=== PATIENT | female | born 1935 | race Caucasian/White ===

== ENCOUNTER → 2017-11-09 08:18 | Outpatient (CLI) | payer MEDICARE, SELFPAY ==
[2017-11-09 10:22] LABS: AST(SGOT) 17 U/L (15-37); Alanine Aminotransfer ALT/SGPT 21 U/L (13-56); Albumin, Serum 3.6 g/dL (3.2-5.0); Alkaline Phosphatase 63 U/L (45-117); Bilirubin, Direct 0.16 mg/dL (0.00-0.30); Cholesterol 188 mg/dL (200); Globulin 3.9 g/dL (2.2-4.2); High Density Lipoprotein 103 mg/dL; Protein, Total 7.5 g/dL (6.4-8.2); Triglycerides 75 mg/dL; Very Low Density Lipoprotein 15 mg/dL (5-40)
== END ==
PROVIDERS: Family Provider Family Medicine; PCP Family Medicine; Visit Provider Internal Medicine Cardiovascular Disease
DX: I25.119 Atherosclerotic heart disease of native coronary artery with unspecified angina pectoris (principal); E78.5 Hyperlipidemia, unspecified
CPT/HCPCS: 36415; 80061; 80076

== ENCOUNTER → 2017-11-22 14:01 | Outpatient (CLI) | payer MEDICARE, SELFPAY ==
[2017-11-22 16:20] LABS: Anion Gap 4 (5-15); BUN 26 mg/dL (7-18); BUN/Creat Ratio 30.4 RATIO (10-20); Calcium,Total 8.5 mg/dL (8.5-10.1); Chloride 104 mmol/L (98-107); Creatinine, Serum 0.85 mg/dL (0.55-1.02); EST Glomerular Filtration Rate 68 mL/min (>60); Est Glom Filt Rate - Afr Amer 82 mL/min (>60); Glucose 157 mg/dL (74-106); Potassium 3.7 mmol/L (3.5-5.1); Sodium Level 139 mmol/L (136-145)
== END ==
PROVIDERS: Family Provider Family Medicine; PCP Family Medicine; Visit Provider Family Medicine
DX: E11.9 Type 2 diabetes mellitus without complications (principal)
CPT/HCPCS: 36415; 80048

== ENCOUNTER → 2017-11-23 12:03 | Outpatient (CLI) | payer MEDICARE, SELFPAY ==
--- NOTE | 2017-11-23 12:04 | STE_ITS ---
Reason For Study: Chest pain Stress Results Protocol: Dobutamine Stress Maximum Predicted HR: 139 bpm Target HR: 118 bpm% Maximu m Predicted HR: 86 % DurationHeart Rate Stage (mm:ss) (bpm) BPDos e Comment BASELINE 70 165/81 STAGE 1 3:25 59 175/8210.00 STAGE 2 3:00 11 0 224/8620.00 STAGE 3 2:38 12 0 220/7330.00BILAT JAW PAIN RECOVERY 82 195/80 Chest Pain resolved Stress Duration: 9:03 mm:ss Maximum Stress HR: 120 bpm Baseline Echocardiogram Findings The estimated ejection fraction is 65 %. Stress Echo Wall motion Data Resting WMIntermediate WMStress WM Resting Wall Motion Wall Motion Stress No regional wall motion No regional wall motion abnormalities noted. abnormalities noted. EKG Data Normal intervals are noted. The patient was titrated from 10 mcg to a maximun of 30 mcg of dobutamine during the stress. The maximum heart rate attained was 121 beats per minute. This was 87% of maximum predicted heart rate. During dobutamine infusion, there were no ST or T wave changes noted to suggest ischemia. No clinical angina was noted. Interpretation Summary The estimated ejection fraction is 65 %. The patient was titrated from 10 mcg to a maximun of 30 mcg of dobutamine during the stress. Normal, adequate, dobutamine echocardiogram. Negative for ischemia by EKG and echocardiographic criteria. No anginal symptoms noted however the patient did develop jaw pain at peak infusion. Hypertensive blood pressure response to dobutamine with a peak blood pressure of 224/86. Test terminated due to the attainment of target heart rate. No associated wall motion and normalities despite her jaw pain. Rare PVCs and PACs during infusion. Final LVEF is 75%. Ordering Physician: Anup Garcia Referring Physician: Anup Garcia Performed By: Mine Ferguson, DENNISCS, RVT
== END ==
PROVIDERS: Family Provider Family Medicine; PCP Family Medicine; Visit Provider Internal Medicine Cardiovascular Disease
DX: I25.119 Atherosclerotic heart disease of native coronary artery with unspecified angina pectoris (principal); R07.9 Chest pain, unspecified; Z95.1 Presence of aortocoronary bypass graft
CPT/HCPCS: 93017; 93350; Q9957; A4216

== ENCOUNTER → 2018-12-12 13:01 | Outpatient (CLI) | payer MEDICARE, SELFPAY ==
[2018-11-26 08:29] VITALS: BMI 31.9
--- NOTE | 2018-12-12 13:04 | STEWCON_ITS ---
Reason For Study: CHEST PAIN Stress Results Protocol: Dobutamine Stress Echocardiogram Maximum Predicted HR: 138 bpm Target HR: 117 bpm % Maximum Predicted HR: 92 % DurationHeart Rate Stage (mm:ss) (bpm) BP Dose Comment BASELINE 60 169/79 DILUTED DEFINITY 8 CC USED DSE- 10 MCG 3:37 69 163/7710.00 DSE- 20 MCG 3:11 96 204/8320.00NO SX DSE- 30 MCG 4:11 127 200/7230.00JAW PAIN 2-3/10 RECOVERY 78 170/84 JAW PAIN SUBSIDED Stress Duration: 10:59 mm:ss Maximum Stress HR: 127 bpm Baseline Echocardiogram Findings The estimated ejection fraction is 65 %. Stress Echo Wall motion Data Resting WM Intermediate WM Stress WM Resting Wall Motion Wall Motion Stress No regional wall motion Posterior-Basal: Mildly abnormalities noted. hypokinetic. Infero-Basal: Mildly hypokinetic. EKG Data The baseline ECG displays normal sinus rhythm. The patient was titrated from 10 mcg to a maximun of 30 mcg of dobutamine during the stress. The maximum heart rate attained was 127 beats per minute. This was 92% of maximum predicted heart rate. At peak infusion, upsloping ST changes only were noted, which did not meet the criteria for ischemia. No clinical angina was noted. Interpretation Summary The estimated ejection fraction is 65 %. Posterior-Basal: Mildly hypokinetic Infero-Basal: Mildly hypokinetic Abnormal, adequate, dobutamine echocardiogram. Positive for ischemia by EKG and echocardiographic criteria. Patient appeared to develop mild inferior and posterior hypokinesis at peak infusion. Hypertensive blood pressure response to infusion. Dobutamine. Patient also developed jaw pain at peak infusion which subsided by 6 minutes into recovery. Patient also had PVCs and rare ventricular couplets during dobutamine. Poor echo windows requiring Definity agent may affect the outcome of interpretation. Test terminated due to attainment of target heart rate. No complications. The study was technically difficult. Contrast injection was performed. Ordering Physician: Barry Rose/Anup Garcia Referring Physician: Barry Rose Performed By: Mine Ferguson, LUISITO, RVT
== END ==
PROVIDERS: Family Provider Family Medicine; PCP Family Medicine; Referring Provider Nurse Practitioner Family; Visit Provider Nurse Practitioner Family
DX: I25.10 Atherosclerotic heart disease of native coronary artery without angina pectoris (principal); Z95.1 Presence of aortocoronary bypass graft; R07.9 Chest pain, unspecified
CPT/HCPCS: 93017; 93350; J7040; Q9957; A4216; C8928

== ENCOUNTER 2018-12-23 07:44 | Day surgery (SDC) | payer MEDICARE, SELFPAY ==
[2018-11-26 08:29] VITALS: BMI 31.9
--- NOTE | 2018-12-18 09:30 | RAD_ITS ---
STUDY: X-RAY CHEST REASON FOR EXAM: Female, 83 years old. Chest pain TECHNIQUE: Frontal and lateral views of the chest COMPARISON: 03/08/2014 FINDINGS: There is stable elevation of the left hemidiaphragm with left basilar atelectasis. The lungs are otherwise clear. There are no pleural effusions. There is no pneumothorax. The heart is normal in size. The visualized osseous structures are within normal limits. RAD/Chest PA and Lateral IMPRESSION: No acute thoracic pathology. Electronically Signed: Roger Delgado, at 17:06 EDT Tel , Service support ,
[2018-12-18 09:55] VITALS: BMI 31.9
[2018-12-18 11:42] LABS: Hematocrit 35.8 % (37-47); Hemoglobin 12.3 g/dL (12.0-15.0); Mean Corp Hgb Conc 34.4 g/dL (32-36); Mean Corpuscular Hgb 31.6 pg (27.0-32.0); Mean Platelet Vol. 10.2 fl (6.2-12.0); Platelet Count 229 K/mm3 (150-450); RBC Distribution Width CV 12.4 % (11.6-14.6); RBC Distribution Width SD 41.3 fl (35.1-43.9); Red Blood Count 3.89 M/mm3 (4.2-5.4); White Blood Count 4.6 K/mm3 (4.4-11.0)
[2018-12-18 12:05] LABS: International Normalized Ratio 1.1; Prothrombin Time (Protime)PT. 13.6 SECONDS (11.7-14.9)
[2018-12-18 12:06] LABS: Partial Thromboplast Time 38.8 Seconds (24.1-36.2)
[2018-12-18 12:07] LABS: Anion Gap 5 (5-15); BUN 23 mg/dL (7-18); BUN/Creat Ratio 27.4 RATIO (10-20); Calcium,Total 8.8 mg/dL (8.5-10.1); Chloride 102 mmol/L (98-107); Creatinine, Serum 0.84 mg/dL (0.55-1.02); EST Glomerular Filtration Rate 69 mL/min (>60); Est Glom Filt Rate - Afr Amer 84 mL/min (>60); Glucose 123 mg/dL (74-106); Potassium 3.3 mmol/L (3.5-5.1); Sodium Level 139 mmol/L (136-145)
[2018-12-23] VITALS (22 sets, daily range): BP systolic 118–182; BP diastolic 42–96; PULSE 64–80; RESP 14–30; TEMP 36.4–36.7; O2SAT 94–97; BMI 32.0; BMI 31.7
--- NOTE | 2018-12-23 11:00 | EKG12_ITS ---
Test Reason : BRADYCARDIA Blood Pressure : / mmHG Vent. Rate : 062 BPM Atrial Rate : 062 BPM P-R Int : 248 ms QRS Dur : 100 ms QT Int : 426 ms P-R-T Axes : 007 052 060 degrees QTc Int : 432 ms Sinus rhythm with 1st degree A-V block Otherwise normal ECG When compared with ECG of 23-DEC-2018 11:06, MANUAL COMPARISON REQUIRED, DATA IS UNCONFIRMED Confirmed by JUDY GARCIA ([id number]), offline editor EULALIA EVANGELISTA ([id number]) on 12/30/2018 2:25:42 PM Referred By: Judy Garcia Confirmed By:JUDY GARCIA
--- NOTE | 2018-12-23 11:02 | CL.I_ITS ---
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 Pt had identical jaw/tooth and chest pain with stetn deployment as she had at home. RECOMMENDATIONS Referred for immediate PCI Medical management of non obstructive LAD and distal SVG to OM lesion unless or until pt has recurren t anginal symptoms. Highly recommend quitting all tobacco products Follow up with primary bullet swaging machine adjuster Risk factor modification ASA Indefinitley Plavix for at least 12 months Routine post interventional care Refer for Outpatient Cardiac Rehab Manual sheath removal per protocol Follow up with Dr. Garcia Successful Mynx Control closure of RFA. DESCRIPTION OF PROCEDURE The patient arrived to the procedure lab. The risks and benefits of the procedure as well as a full d escription of our services here and lack of surgical backup were fully explained to the patient and/o r their significant other prior to the catheterization. The Timeout was completed, verifying the mansoor ect patient and procedure. The patient's procedural site was prepped and draped in the usual fashion. Local anesthetic was given subcutaneously to right groin region with Lidocaine 2%. Using a modified Seldinger technique, arterial access was obtained via the right femoral artery, a 4Fr sheath was inse rted. Left Coronary Artery selective angiography was performed in multiple views using a 4 Fr. JL5 c atheter. Right Coronary Artery selective angiography was then performed in multiple views using a 4 F r. 3DRC catheter. Saphenous Vein graft to the Circumflex selective angiography was performed in multi ple views using a 4 Fr. 3DRC catheter. Left internal mammary artery graft to the LAD selective angiography was performed in multiple views using a 4 Fr. 3DRC catheter. Left Ventriculogra phy was performed in AGUILAR projection using a 4 Fr. Pigtail catheter. LV to AO pullback pressures were then recordedThe images were reviewed and options discussed. A decision was then made to proceed with an Intervention, IVUS or other adjunct procedure. Arterial sheath was exchanged for a 6 Fr Sheath. HS II Guide catheter was inserted and engaged in to the RCA. BMW Guide wire was advanced to the RCA. 2x12 Emerge Balloon catheter was inserted. Balloo n catheter was advanced across lesion in the right coronary, mid. PTCA balloon inflated at 6 atms for 4 secs. PTCA balloon inflated at 6 atms for 12 secs. PTCA balloon inflated at 8 atms for 10 secs. PT CA balloon inflated at 8 atms for 12 secs. Angiogram performed post balloon dilatation. 3.5x32 Synerg y Drug Eluting stent was inserted. Drug Eluting stent was advanced across the lesion in the right cor onary, mid. Angiogram performed post stent deployment. 3.5x12 NC Emerge Balloon catheter was inserted . Balloon catheter was inserted post stent. Contrast was injected through the sheath and the Right Il iac and Femoral artery were assessed for possible closure device. The arterial sheath was pulled and a Mynx closure device was deployed for hemostasis CORONARY ANGIOGRAPHY DOMINANCE: Right Dominant LEFT HEART ASSESSMENT Left Ventricular Ejection Fraction: by LV Gram 75 % Normal Left Ventricular systolic function LVEDP: 16 mmHg Elevated Left Ventricular End Diastolic Pressure Normal LV wall motion LEFT MAIN: 20 % Stenosis LEFT ANTERIOR DESCENDING ARTERY: PROX LAD: Mild calcification, 50 % Stenosis, Moderate luminal irregularities up to 50% CIRCUMFLEX ARTERY: is occluded RIGHT CORONARY ARTERY: MID RCA: 75 % Stenosis GRAFTS: PHILIPPE graft to the LAD is atretic and non functional Saphenous Vein graft to the Mid LAD previously placed stent is patent Radial graft to the 1st Diagonal is totally occluded Saphenous Vein graft to the 1st OM has a distal lesion of 65 % INTERVENTION INFORMATION LESION SITE: RCA (Mid) Lesion Complexity: High/C, lesion at bifurcation: No, thrombus present: No, lesion length: 32 mm, cul prit lesion: Yes Pre Stenosis: 75 % Pre intervention MIN flow: 3 PROCEDURE: Drug Eluting Stent with pre and post dilatation Post Stenosis: 0 % Post intervention MIN flow: 3 Lesion Devices: Orantes .014 BMW [place] Straight 190cm Medtronic 6 Fr HSII 100cm Guide Catheter Lan Sci EMERGE MR 2.00x12 BALLOON Lan Sci Synergy MR TANVI 3.50x32 Lan Sci NC EMERGE MR 3.50x12 BALLOON COMPLICATIONS No Complications PROCEDURE MEDICATIONS Oxygen: 2 L/min via nasal cannula Heparin 6000 unit(s) IV 12/23/2018 10:21:59 Nitro 200 mcg IC 12/23/2018 10:24:04 Nitro 200 mcg IC 12/23/2018 10:24:04 Nitro 200 mcg IC 12/23/2018 10:29:07 SUMMARY OF HEMODYNAMIC DATA Time AIR REST ECG 08:18:36 AO 167/68 (104) SA 10:07:01 LV 153/-15, 15 10:17:32 LV 159/-15, 19 10:17:38 LVp 152/-8, 24 10:17:46 AOp 152/57 (95) 10:17:51 Signed By Anup Garcia MD On 12/23/2018 11:01:31 Anup Garcia MD
[2018-12-23] MEDS: 0.9% Normal Saline 1,000 ML 150 ML IV (11:17)
[2018-12-23 11:50] LABS: ACT Activated Clotting Time 191 sec (74-137)
--- NOTE | 2018-12-23 13:43 | CRPHASE1_ITS ---
Patient Communication PHII Cardiac Rehab Discussed with Patient:: No Guide to Cardiac Rehab Given to Patient:: Yes Cardiac Rehab Facility Choice List Given to Patient:: Yes - chooses [facility] Choice Program [facility] CR PHII:: Communication Given to CR, Refer to [facility] Choice Program Other:: Communication Given to CR, With permission faxed order and referral information Resolute Professional:: Anup Garcia Phase II Cardiac Rehab:: Yes Sessions:: 36 sessions - 3 days/wk, 12 weeks Risk Factors/Lifestyle Hx Hypertension: Yes Hx Dyslipidemia: Yes Hx Obesity: Yes Height: 1.55 m Weight:: 76.204 kg BMI: 31.7 Family History: Family History (Last Reviewed 07/18/18 @ 14:31 by Nilda Montes De Oca) Father CAD (coronary artery disease) Brother CAD (coronary artery disease) Phase I Education Given On:: [place], Nutrition, Antiplatelet medication, CHF, Smoking cessation, Diabetes - Type I, Diabetes - Type II Issues Affecting Care:: None Knowledge of Condition:: Yes Learning Preferences: Verbal, Written, Audio/Visual, Demonstration Medical/Surgical History Hypertension:: Yes Dyslipidemia:: Yes CABG: Yes PTCA:: Yes Discharge/Home/Social Eval Discharge Disposition: Home Cardiac Rehabilitation Info Cardiac Rehabilitation Program Information: Cardiac Rehabilitation is important for patients like you who are recovering from a heart problem. Cardiac rehabilitation programs are recognized as integral to the continued care of the patient with coronary heart disease. The cardiac rehabilitation program is designed to optimize a patient's physical, psychological, and social functioning. Health health care recruiter work in cardiac rehabilitation programs and assist you with getting the treatments you need to get stronger and healthier - like exercise, healthy eating habits, and medications. Cardiac rehabilitation has been show to help people with heart problems live longer and have better life enjoyment than people who do not go to cardiac rehabilitation. Please contact the Cardiac Rehabilitation Program at [facility] at in two weeks if you have not heard from them.
--- NOTE | 2018-12-23 13:46 | CRPH1.INSTRU ---
General Education CAD and cardiac anatomy and function:: Patient communicates acknowledgment Explanation of diagnoses and procedures:: Patient communicates acknowledgment Sign/Symptoms of GA:: Patient communicates acknowledgment Antiplatelet therapy: Patient communicates acknowledgment Proper use of NTG-SL: Not instructed Emergency procedures and activation of EMS: Patient communicates acknowledgment Compliance of all prescribed medications: Patient communicates acknowledgment Smoking Nicotine/Smoking Response Code:: Patient communicates acknowledgment Dyslipidemia Dyslipidemia Response Code:: Patient communicates acknowledgment Overweight/Obesity Patient Overweight/Obesity Risk Factors Are:: Obesity - > or = 30 Recommendations Include:: Weight loss of 5-10%, Reduced calorie diet, Exercise 5-7 times/week Overweight/Obesity:: Patient communicates acknowledgment Hypertension Recommendations Include:: Maintain BP <130/85, BP <130/80 if diabetic, DASH dietary guidelines, Decrease/maintain normal body weight, Moderation of ETOH Hypertension:: Patient communicates acknowledgment Heart Disease Patient Heart Disease Risk Factors Are:: Family history of heart disease < 65 years old Heart Disease Response Code:: Patient communicates acknowledgment Diabetes Diabetes:: Patient communicates acknowledgment Metabolic Syndrome Metabolic Syndrome Response Code:: Patient communicates acknowledgment Sedentary Sedentary Response Code:: Patient communicates acknowledgment Stress Stress Response Code:: Patient communicates acknowledgment
[2018-12-23] MEDS: hydroCHLOROthiazide 12.5mg 12.5 MG PO (15:11)
[2018-12-23] MEDS: Losartan Potassium 50 MG Tablet PO (15:12)
[2018-12-23] MEDS: Atorvastatin Calcium 20 MG Tablet PO (21:04)
[2018-12-23] MEDS: Carvedilol 6.25 MG Tablet PO (21:04)
[2018-12-24] VITALS (10 sets, daily range): BP systolic 136–171; BP diastolic 53–78; PULSE 60–71; RESP 20–27; TEMP 36.7–37.1; O2SAT 95–96
[2018-12-24 04:38] LABS: ALB/GLOB Ratio 0.8 RATIO (0.9-2.4); AST(SGOT) 16 U/L (15-37); Alanine Aminotransfer ALT/SGPT 15 U/L (13-56); Albumin, Serum 3.1 g/dL (3.2-5.0); Alkaline Phosphatase 67 U/L (45-117); Anion Gap 6 (5-15); BUN 14 mg/dL (7-18); BUN/Creat Ratio 19.7 RATIO (10-20); Calcium,Total 8.5 mg/dL (8.5-10.1); Chloride 107 mmol/L (98-107); Creatinine, Serum 0.71 mg/dL (0.55-1.02); EST Glomerular Filtration Rate 84 mL/min (>60); Est Glom Filt Rate - Afr Amer 101 mL/min (>60); Estimated Creatinine Clearance 32.73 ml/min; Globulin 3.7 g/dL (2.2-4.2); Glucose 105 mg/dL (74-106); Potassium 3.6 mmol/L (3.5-5.1); Protein, Total 6.8 g/dL (6.4-8.2); Sodium Level 141 mmol/L (136-145)
[2018-12-24 04:49] LABS: Hematocrit 34.4 % (37-47); Hemoglobin 11.8 g/dL (12.0-15.0); Mean Corp Hgb Conc 34.3 g/dL (32-36); Mean Corpuscular Volume 93.2 fL (81-99); Mean Platelet Vol. 9.7 fl (6.2-12.0); Platelet Count 209 K/mm3 (150-450); RBC Distribution Width CV 12.2 % (11.6-14.6); RBC Distribution Width SD 42.1 fl (35.1-43.9); Red Blood Count 3.69 M/mm3 (4.2-5.4); White Blood Count 4.2 K/mm3 (4.4-11.0)
--- NOTE | 2018-12-24 07:56 | PCM.PN.CARD ---
Subjectve: Patient feels much better this morning. No 24-hour events. Telemetry negative except for PVC. EKG shows normal sinus rhythm, no acute changes. Hemoglobin and creatinine are within nominal limits. Right groin is clean/dry/intact without evidence of thrills, bruits or hematoma. There is very slight tenderness but no evidence of hematoma or bruit. Objective: Vital Signs Temp Pulse Resp BP Pulse Ox 98.7 F 64 20 H 164/71 H 95 12/24/18 03:00 12/24/18 07:28 12/24/18 07:00 12/24/18 07:00 12/24/18 07:00 Oxygen Delivery Method Room Air Weight: 168 lb 6.931 oz Body Mass Index (BMI) 32.0 Intake and Output for Last 24 Hours 12/22/18 12/23/18 12/24/18 23:59 23:59 23:59 Intake Total 1320 / 1560 340 / 340 Output Total 625 / 925 500 / 500 Balance 695 / 635 -160 / -160 General: Awake, Alert, Oriented x 3 HEENT: PERRL, EOMI, Sclera Non Icteric Neck: Supple, Good ROM, No Lymph Node Enlargement Lungs: Clear to auscultation Cardiovascular: Regular Rhythm, Normal S1, Normal S2, No Murmurs, No Rubs, No Gallops Vascular: No Carotid Bruits, Normal Femoral Pulses, Normal Radial Pulses, Normal Dorsalis Pedal Pulse, Normal Posterior Tibial Pulses Abdomen: Bowel Sounds Present, Soft, Non Tender, No HSM, No Organomegaly Extremities: No Cyanosis, No Clubbing, No edema Neurological: No Focal Motor or Sensory Deficit 12/24/18 04:15: WBC 4.2 L, RBC 3.69 L, Hgb 11.8 L, Hct 34.4 L, MCV 93.2, MCH 32.0, MCHC 34.3, Plt Count 209, MPV 9.7 12/24/18 04:15: Sodium 141, Potassium 3.6, Chloride 107, Carbon Dioxide 28.0, Anion Gap 6, BUN 14, Creatinine 0.71, Est GFR (MDRD) Af Amer 101, Est GFR (MDRD) Non-Af 84, BUN/Creatinine Ratio 19.7, Glucose 105, Calcium 8.5, Total Bilirubin 0.40 Rhythm: EKG: ECHO: Stress Test: Cardiac Cath: PCI: CT Surgery: Holter monitor: EPS: PPM: CXR: Chest CT Scan: Assessment/Plan 1. Coronary artery disease: The patient status post bypass surgery with failure of her saphenous vein graft to the diagonal, and atretic PHILIPPE to the LAD which is essentially nonfunctional. Her remaining saphenous vein graft to the obtuse marginal has a distal concentric 65% stenosis before it anastomosis with her obtuse marginal. Patient has a non-bypassed right coronary artery which had a significant mid RCA stenosis. She received a drug-eluting stent with an excellent result, and during the procedure had the same kind of chest pain and jaw pain symptoms she had at home. I recommended the patient continue baby aspirin and Plavix for life. If the patient continues to have exertional anginal symptoms at home we can consider PCI of the vein graft to the left circumflex, and FloWire evaluation of her mid LAD to determine if she requires intervention of those 2 vessels. 2. Hyperlipidemia: Continue statin based medications. Repeat lipid profile after cardiac rehab is completed. 3. Patient may be discharged home. Follow-up with Dr. Garcia. Thank you very much for the opportunity to participate in the cardiac care of your patient. Code Visit Inpatient E&M: 99000 Subs Hosp L2
[2018-12-24] MEDS: Pantoprazole Sodium 20 MG Tablet PO (08:31)
[2018-12-24] MEDS: Aspirin E.C. 81 MG Tablet PO (08:31)
[2018-12-24] MEDS: Losartan Potassium 50 MG Tablet PO (08:32)
[2018-12-24] MEDS: hydroCHLOROthiazide 12.5mg 12.5 MG PO (08:32)
[2018-12-24] MEDS: Carvedilol 6.25 MG Tablet PO (08:32)
[2018-12-24] MEDS: Multivitamin (Healthy Eyes) Capsule 2 CAP PO (08:32)
[2018-12-24] MEDS: Isosorbide Mononitrate 60 MG Tablet PO (08:33)
[2018-12-24] MEDS: Clopidogrel Bisulfate 75 MG Tablet PO (08:33)
[2018-12-24] MEDS: Calcium Carb/Vitamin D 1 TABLET Tablet PO (08:33)
--- NOTE | 2018-12-24 08:43 | PCM.DC.CCA ---
Discharge Diet: Low fat/ Low Cholesterol Discharge Activity: Return to Normal Activity Lifting Restrictions: 10 pounds and also avoid any pushing or pulling for 3 days after your test. Call your doctor if your incision/area has: Continuous Slow Oozing, Sudden Increased Bleeding, Increased Pain/ Swelling, Foul Smelling Discharge, Swelling at the incision site Call your doctor if you observe: Fever of 101 or Higher, Shortness of breath, Chest pain Cleanse incision/area with: Soap & Water Additional Dressing/Incision Instructions:: Keep the dressing (bandage) on until the next morning. You may then shower, but do not take a tub bath for 5 days after your test. It is normal to have some tenderness and discomfort at the puncture site. Sometimes bruising also occurs. However, if pain, numbness, or coldness occurs below the puncture site (in your leg, toes, arms or fingers) call your doctor at once. You may have a small, marble sized knot at the puncture site. This is normal. Do not rub it. It will go away in 4-6 weeks. Bleeding can occur from the area where the puncture was done. Blood may spurt or drip from the site. If blood spurts, apply pressure right away to stop bleeding and call 911. Although rare, bleeding into the tissue (hematoma) can also occur. If this happens, a large, firm area goose egg under the skin will appear. If any of these occur, lie down as flat as you can and have someone apply firm pressure to the cath site with a gauze pad or a clean washcloth for 10-15 minutes. Call 911 or go to the Emergency Department. Additional Instructions: Narayan need to stay on your plavix for at least one year before it can be stopped At your next OV we will discuss cardiac rehab Allergies/Adverse Reactions: Allergies lisinopril Adverse Reaction (Verified 11/26/18 13:34) cough Medications to take at Discharge Aspirin E.C. [Ecotrin] 81 mg PO DAILY@0800 03/08/14 Omeprazole [Prilosec] 20 mg PO DAILY 03/08/14 Knee High Compression Stockings #2 ea 03/20/18 carvedilol 6.25 mg tablet 6.25 mg PO BID #180 tab 07/19/18 isosorbide mononitrate ER 60 mg tablet,extended release 24 hr 60 mg PO DAILY #90 tab 07/19/18 losartan 50 mg-hydrochlorothiazide 12.5 mg tablet 1 tab PO QDAY #90 tab 07/19/18 simvastatin 40 mg tablet 40 mg PO QPM #90 tab 07/19/18 furosemide 20 mg tablet 20 mg PO .COMPLEX #60 tab 11/26/18 nitroglycerin 0.4 mg sublingual tablet 0.4 mg SUBLINGUAL Q5-15M PRN #25 tab 11/26/18 clopidogrel 75 mg tablet 75 mg PO .COMPLEX #30 tab 12/18/18 potassium chloride ER 20 mEq tablet,extended release 20 meq PO DAILY #90 tab 12/18/18 Orders to be completed after discharge: Phase II, Outpatient Cardiac Rehab Location: None Selected Primary Care Physician: Sam Rojas MD [Primary Care Provider] - Test Results: Test results from this visit will be discussed in further detail at your follow-up appointment, if applicable. Please Follow Up With: Harika Laguna PA When: 01/09 at 3:30 pm Cardiac Rehabilitation Info Cardiac Rehabilitation Program Information: Cardiac Rehabilitation is important for patients like you who are recovering from a heart problem. Cardiac rehabilitation programs are recognized as integral to the continued care of the patient with coronary heart disease. The cardiac rehabilitation program is designed to optimize a patient's physical, psychological, and social functioning. Health hospice spiritual care coordinator work in cardiac rehabilitation programs and assist you with getting the treatments you need to get stronger and healthier - like exercise, healthy eating habits, and medications. Cardiac rehabilitation has been show to help people with heart problems live longer and have better life enjoyment than people who do not go to cardiac rehabilitation. Please contact the Cardiac Rehabilitation Program at [facility] at in two weeks if you have not heard from them.
--- NOTE | 2018-12-24 09:07 | HP.PCM_ITS ---
Problem List (1) Stented coronary artery Status: Chronic Comment: Successful PTCA/TANVI mid RCA with a 3.5 x 32 Promus Synergy per DJN @ [facility] 12/23/2018 (2) Abnormal stress echo Status: Acute (3) Hyperlipidemia, unspecified Status: Chronic Qualifiers: (4) Essential (primary) hypertension Status: Chronic (5) Atherosclerosis of [place] coronary artery of [place] heart without angina pectoris Status: Chronic Comment: CABG PHILIPPE-LAD, SVG-RAMUS and CX. SVG- RAMUS Occluded per cath 2005 (6) Chest pain Status: Acute (7) Fatigue Status: Acute (8) Dyspnea Status: Acute (9) H/O coronary artery bypass surgery Status: Chronic Comment: CABG PHILIPPE-LAD, SVG-RAMUS and CX. SVG- RAMUS Occluded per cath 2005 History and Physical Date of Admission: 12/23/18 [facility] [place] [id number] [facility] [place] [address] OFFICE VISIT Date of Service: 11/26/18 MR#: [id number] Acct: [id number] Name: JEANETTE CORRIGAN Rep #: [id number] : 1935 Provider: EROS Rose Age/Sex: 83/F Location: [facility] Status: Signed [facility] History of Present Illness Details: Mrs. Corrigan is a very pleasant 83-year-old female with a history of hypertension, hypercholesterolemia, borderline diabetes, coronary artery disease status post 3 vessel bypass surgery on 12/08/94. At that time she received a PHILIPPE to the LAD, an SVG to the ramus/diagonal, and an SVG to the lateral circumflex. Her anginal symptoms prior to her bypass were crushing substernal chest pressure radiating to her arm and jaw. A repeat catheterization in 2005 reportedly showed graft occlusion of the SVG to the diagonal, and compromise of the SVG to the lateral circumflex. According to the patient, no angioplasty was performed as apparently her discouraged her from having it done due to concerns of sudden . She denies arm, jaw, or neck discomfort. She states varying chest and arm pain at rest. This can occur with activity too. This resolves with NTG and laying down. This has not happened for several days. Her exercise tolerance is stable. She denies symptoms of CHF, lightheadedness, dizziness, near syncope, or syncopal episodes. She states palpitations several weeks ago that felt funny. This was short lasting and resolved on its own. She denies new or worsening edema or claudication issues. She denies PND, blood in urine, blood in stool, or myalgia. She states feeling tired all the time. She states she does not feel rested after sleeping. She states feeling up often. She states snoring and waking with a dry mouth. She denies witness apnea. She denies headaches. She states feeling difficult staying asleep. She denies difficulty falling asleep. She states sleeping in a chair and with a wedge. Intake Vital Signs 11/26/18 Height 5 ft 1 in 11/26/18 Weight: 169 lb 11/26/18 Body Mass Index (BMI) 31.9 11/26/18 Blood Pressure 111/62 11/26/18 Blood Pressure Location Lt brachial 11/26/18 Blood Pressure Position Sitting 11/26/18 Respiratory Rate 18 11/26/18 Pulse Rate 73 11/26/18 Pulse Source Monitor 11/26/18 Pulse Ox 95 Intake Visit Reasons: 4 M FU Kitchen Food Server Required: No Accompanied by: none Is patient in pain?: No Allergies lisinopril Adverse Reaction (Verified 11/26/18 13:34) cough Medications Aspirin E.C. [Ecotrin] 81 mg PO DAILY@0800 03/08/14 [History Confirmed 07/18/18] Omeprazole [Prilosec] 20 mg PO DAILY 03/08/14 [History Confirmed 07/18/18] Senior Eye Vision 2 tab PO DAILY 03/08/14 [History Confirmed 07/18/18] calcium-vitamin C-vit D2-min tablet tab PO 11/06/17 [History Confirmed 07/18/18] docosahexanoic acid 200 mg capsule mg PO 11/06/17 [History Confirmed 07/18/18] Knee High Compression Stockings #2 ea 03/20/18 [Rx Confirmed 07/18/18] carvedilol 6.25 mg tablet 6.25 mg PO BID #180 tab 07/19/18 [Rx] isosorbide mononitrate ER 60 mg tablet,extended release 24 hr 60 mg PO DAILY #90 tab 07/19/18 [Rx] losartan 50 mg-hydrochlorothiazide 12.5 mg tablet 1 tab PO QDAY #90 tab 07/19/18 [Rx] simvastatin 40 mg tablet 40 mg PO QPM #90 tab 07/19/18 [Rx] furosemide 20 mg tablet 20 mg PO .COMPLEX #60 tab 11/26/18 [Rx Confirmed 11/26/18] nitroglycerin 0.4 mg sublingual tablet 0.4 mg SUBLINGUAL Q5-15M PRN #25 tab 11/26/18 [Rx Confirmed 11/26/18] [facility] History (Updated 11/26/18 @ 08:24 by JESS OviedoC) Hyperlipidemia, unspecified (Chronic) Essential (primary) hypertension (Chronic) Atherosclerosis of [place] coronary artery of [place] heart without angina pectoris (Chronic) Bilateral lower extremity edema (Acute) GERD (gastroesophageal reflux disease) (Chronic) PVD (peripheral vascular disease) (Chronic) Surgical History (Updated 10/28/17 @ 19:29 by Kay Romero) H/O coronary artery bypass surgery (Chronic 12/08/94) Family History (Updated 04/12/17 @ 14:02 by Kay Romero) Father CAD (coronary artery disease) Brother CAD (coronary artery disease) Social History (Updated 11/26/18 @ 16:02 by JEAN-PAUL Oviedo) Smoking Status: Never smoker ROS Const Const: Positive for fatigue; negative for weakness, body ache, fever(s) or chills ENT ENT: Negative for dizziness Cardio Chest Pain: Yes Palpitations: Yes Edema: None Muscle aches with walking: None Resp Respiratory: Negative for SOB with activity, SOB at rest, SOB orthopnea\SOB lying down or paroxysmal nocturnal dyspnea GI GI: Negative nausea, vomiting blood/hematemesis, bright, red blood in stools or black,tarry stools : Negative for hematuria or frequent nighttime urination/ nocturia Musc Musc: Negative for muscle aches/ myalgia Skin Skin: Negative non-healing lesions or rash Neuro Neuro: Negative for dizziness, lightheadedness, near syncope, syncope, orthostatic symptoms or weakness Endo Endo: Positive for fatigue Allergy Allergy/Immunology: Negative for rash Cardiology Exam Const Appearance: cooperative, healthy appearing, comfortable and no acute distress Nutritional Appearance: well nourished and obese Orientation: alert, awake and oriented x3 Head Head: normal to inspection Ears: hearing grossly normal bilaterally Nose: external nose normal Face and Sinus: face symmetric Mouth: oral mucosae normal Eyes General: appearance normal, both eyes and all related structures Eyelids: eyelids normal EOM: EOM intact bilaterally Neck Neck: normal visual inspection and no JVD Carotids: normal carotid upstroke Chest Chest inspection: normal inspection of the chest, symmetric chest movement and normal respiratory effort; negative cough Auscultation: Bilateral: Clear to Auscultation Cardio Rate: regular rate Rhythm: regular rhythm Heart sounds: S1 normal and S2 normal; negative rub, gallop or murmur GI GI: normal to inspection and obese Neuro General: alert, awake, oriented x3 and CN's II-XI intact bilaterally Skin Skin: no rashes or lesions noted Extremities Pulses: Normal: Right Posterior Tibial Pulse, Left Posterior Tibial Pulse, Right Radial Pulse, Left Radial Pulse Lower Extremity Edema: None: Bilateral Psych Psychological: normal affect Assessment & Plan 1. Atherosclerosis of [place] coronary artery of [place] heart without angina pectoris I25.10 CABG PHILIPPE-LAD, SVG-RAMUS and CX. SVG- RAMUS Occluded per cath 2006 Plan Her most recent stress echocardiogram from November 2017 was considered to be normal, adequate, dobutamine echocardiogram that was negative for ischemia by ECG and echocardiographic criteria. Her ejection fraction was noted to be 65%. Patient has had been having more episodes of chest pain. She has taken nitroglycerin on a routine basis to help with such chest pains. Due to her previous history of cardiac disease and now a new recurrent chest pain along with fatigue, she will undergo a repeat stress echocardiogram to evaluate for changes. Based on results further recommendation will be made. Orders Orders: Stress Test Echo w/o Contrast Today 2. H/O coronary artery bypass surgery Z95.1 CABG PHILIPPE-LAD, SVG-RAMUS and CX. SVG- RAMUS Occluded per cath 2006 Plan She will continue with current treatment plan as outlined above. Orders Orders: Stress Test Echo w/o Contrast Today 3. Essential (primary) hypertension I10 Plan Patient's blood pressure is well-controlled. We will continue to monitor. We will not make any medication regimen changes. It was thoroughly discussed at last office appointment on 07/18/2018 in regards to medication adjustment due to concerns of lightheadedness and dizziness with position changes. Per discussion no medication changes were made. Patient states her positional lightheaded dizziness is manageable she does not wish to adjust medications. 4. Hyperlipidemia, unspecified hyperlipidemia type E78.5 Plan Lipid panel from November 2017 showed cholesterol: 188, HDL: 103, LDL: 70, and triglycerides: 75. She will continue with current statin medication. We will continue to monitor. Her ideal LDL level is 70 or below. Plan Detail Other Orders Orders: Stress Test Echo w/o Contrast Today R07.9 Other Medications New: nitroglycerin 0.4 mg sublingual Q5-15M PRN 25 tabs 3RF Refilled: furosemide 20 mg PO daily, may take 1 extra tablet to = 40 mg daily as needed for swelling/weight gain/shortness of breath; 60 tabs 11RF Additional Comments Thank you for allowing us to participate in the patients plan of care, if you have any questions please do not hesitate to call. This note was generated using a voice recognition system and there may be incorrect words, spelling or punctuation that were not noted when reviewing the office note prior to saving. Follow Up 6 Months (DJN) Coding Level of Care Code Off vis,est,level 4 Diagnoses Atherosclerosis of [place] coronary artery of [place] heart without angina pectoris I25.10 H/O coronary artery bypass surgery Z95.1 Essential (primary) hypertension I10 Hyperlipidemia, unspecified hyperlipidemia type E78.5 ??Hyperlipidemia type: unspecified Coding Level of Care Code Off vis,est,level 4 Diagnoses Atherosclerosis of [place] coronary artery of [place] heart without angina pectoris I25.10 H/O coronary artery bypass surgery Z95.1 Essential (primary) hypertension I10 Hyperlipidemia, unspecified hyperlipidemia type E78.5 ??Hyperlipidemia type: unspecified Supplemental Info Supplemental Information Stress echocardiogram from 11/23/2017: Interpretation Summary The estimated ejection fraction is 65 %. The patient was titrated from 10 mcg to a maximun of 30 mcg of dobutamine during the stress. Normal, adequate, dobutamine echocardiogram. Negative for ischemia by EKG and echocardiographic criteria. No anginal symptoms noted however the patient did develop jaw pain at peak infusion. Hypertensive blood pressure response to dobutamine with a peak blood pressure of 224/86. Test terminated due to the attainment of target heart rate. No associated wall motion and normalities despite her jaw pain. Rare PVCs and PACs during infusion. Final LVEF is 75%. Echocardiogram from 09/22/2015: Interpretation summary Technically difficult. No parasternal window. The estimate ejection fraction of 65%. Stage I diastolic dysfunction. Unable to estimate RV systolic pressure. There is no comparison study available. Labs LDL Cholesterol 70 mg/dL (0-130) 11/09/17 HDL Cholesterol 103 mg/dL (40-) 11/09/17 Triglycerides 75 mg/dL (-199) 11/09/17 VLDL Cholesterol 15 mg/dL (5-40) 11/09/17 Diagnostics Stress Echocardiogram 11/23/17 11/26/18 1602 <Electronically signed by Barry Payne> Date _ Barry JEONG Cosigner Signature: Date (if applicable) CC: Sam Rojas MD ~ Patient seen and examined on the day of procedure, no interim change noted from her history and physical as stated above. Agree with above history and physical. Patient may proceed with left heart catheterization plus/minus intervention.
--- NOTE | 2018-12-24 10:00 | EKG12_ITS ---
Test Reason : POST PCI Blood Pressure : / mmHG Vent. Rate : 066 BPM Atrial Rate : 066 BPM P-R Int : 246 ms QRS Dur : 092 ms QT Int : 368 ms P-R-T Axes : 113 048 048 degrees QTc Int : 385 ms Sinus rhythm with 1st degree A-V block Nonspecific T wave abnormality Abnormal ECG Confirmed by MAGUI REEDER, TJ ([id number]), research editor FANNY MARADIAGA ([id number]) on 01/01/2019 1:00:42 PM Referred By: Anup Garcia Confirmed By:TJ KILGORE MD
== END 2018-12-24 07:58 | disposition home or self-care (01) ==
LOC: CLSP 07:53 → ICU 10:41
PROVIDERS: Family Provider Family Medicine; PCP Family Medicine; Referring Provider Internal Medicine Cardiovascular Disease; Visit Provider Internal Medicine Cardiovascular Disease
DX: I25.10 Atherosclerotic heart disease of native coronary artery without angina pectoris (principal); I11.0 Hypertensive heart disease with heart failure; I50.1 Left ventricular failure, unspecified; I49.3 Ventricular premature depolarization; I73.9 Peripheral vascular disease, unspecified; E78.5 Hyperlipidemia, unspecified; R94.39 Abnormal result of other cardiovascular function study; R07.89 Other chest pain; R53.83 Other fatigue; R06.00 Dyspnea, unspecified; R73.03 Prediabetes; K21.9 Gastro-esophageal reflux disease without esophagitis; E66.9 Obesity, unspecified; Z68.31 Body mass index [BMI] 31.0-31.9, adult; Z95.1 Presence of aortocoronary bypass graft; Z95.5 Presence of coronary angioplasty implant and graft; Z79.82 Long term (current) use of aspirin; Z79.899 Other long term (current) drug therapy
CPT/HCPCS: 36415; 71046; 80048; 80053; 85027; 85347; 85610; 85730; 92928; 93005; 93459; C1760; J7030; J7040; Q9967; C1725; C1769; C1874; C1887; C1894; C9600

== ENCOUNTER → 2020-01-29 14:05 | Outpatient (CLI) | payer MEDICARE, SELFPAY ==
[2018-12-23 13:46] VITALS: BMI 31.7
[2020-01-29 13:25] VITALS: BMI 30.9
[2020-01-29 15:34] LABS: AST(SGOT) 18 U/L (15-37); Alanine Aminotransfer ALT/SGPT 19 U/L (13-56); Albumin, Serum 3.5 g/dL (3.2-5.0); Alkaline Phosphatase 75 U/L (45-117); Bilirubin, Direct 0.12 mg/dL (0.00-0.30); Cholesterol 214 mg/dL (200); Globulin 3.9 g/dL (2.2-4.2); High Density Lipoprotein 87 mg/dL; Protein, Total 7.4 g/dL (6.4-8.2); Triglycerides 173 mg/dL; Very Low Density Lipoprotein 35 mg/dL (5-40)
== END ==
PROVIDERS: PCP Family Medicine; Referring Provider Physician Assistant Medical; Visit Provider Physician Assistant Medical
DX: E78.5 Hyperlipidemia, unspecified (principal); I25.10 Atherosclerotic heart disease of native coronary artery without angina pectoris
CPT/HCPCS: 36415; 80061; 80076

== ENCOUNTER → 2020-08-06 12:21 | Outpatient (CLI) | payer MEDICARE, SELFPAY ==
[2018-12-23 13:46] VITALS: BMI 31.7
[2020-08-06 11:16] VITALS: BMI 30.6
[2020-08-06 12:56] LABS: AST(SGOT) 15 U/L (15-37); Alanine Aminotransfer ALT/SGPT 16 U/L (13-56); Albumin, Serum 3.5 g/dL (3.2-5.0); Alkaline Phosphatase 81 U/L (45-117); Bilirubin, Direct 0.13 mg/dL (0.00-0.30); Cholesterol 207 mg/dL (200); High Density Lipoprotein 92 mg/dL; Protein, Total 7.5 g/dL (6.4-8.2); Triglycerides 89 mg/dL; Very Low Density Lipoprotein 18 mg/dL (5-40)
== END ==
PROVIDERS: PCP Family Medicine; Referring Provider Physician Assistant Medical; Visit Provider Physician Assistant Medical
DX: E78.00 Pure hypercholesterolemia, unspecified (principal)
CPT/HCPCS: 36415; 80061; 80076

== ENCOUNTER 2021-07-08 11:34 | Outpatient (CLI) | payer MEDICARE, SELFPAY ==
[2021-05-16 13:12] VITALS: BMI 31.7
[2021-07-08 13:15] LABS: AST(SGOT) 19 U/L (15-37); Alanine Aminotransfer ALT/SGPT 20 U/L (13-56); Albumin, Serum 3.3 g/dL (3.2-5.0); Alkaline Phosphatase 74 U/L (45-117); Anion Gap 4 (5-15); BUN 25 mg/dL (7-18); BUN/Creat Ratio 27.2 RATIO (10-20); Bilirubin, Direct 0.14 mg/dL (0.00-0.30); Calcium,Total 9.3 mg/dL (8.5-10.1); Chloride 105 mmol/L (98-107); Cholesterol 183 mg/dL (200); Creatinine, Serum 0.92 mg/dL (0.55-1.02); EST Glomerular Filtration Rate 62 mL/min (>60); Est Glom Filt Rate - Afr Amer 75 mL/min (>60); Globulin 4.3 g/dL (2.2-4.2); Glucose 133 mg/dL (74-106); High Density Lipoprotein 86 mg/dL; Magnesium 2.2 mg/dL (1.6-2.6); Potassium 3.7 mmol/L (3.5-5.1); Protein, Total 7.6 g/dL (6.4-8.2); Sodium Level 140 mmol/L (136-145); Triglycerides 100 mg/dL; Very Low Density Lipoprotein 20 mg/dL (5-40)
== END 2021-07-08 23:59 | disposition home or self-care (01) ==
LOC: LAB 11:36
PROVIDERS: PCP Family Medicine; Visit Provider Internal Medicine Cardiovascular Disease
DX: E78.00 Pure hypercholesterolemia, unspecified (principal); I25.10 Atherosclerotic heart disease of native coronary artery without angina pectoris; I10 Essential (primary) hypertension; E78.5 Hyperlipidemia, unspecified; Z95.5 Presence of coronary angioplasty implant and graft; Z95.1 Presence of aortocoronary bypass graft
CPT/HCPCS: 36415; 80048; 80061; 80076; 83735

== ENCOUNTER 2021-12-31 16:03 | Emergency (ER) | payer MEDICARE, SELFPAY ==
[2021-05-16 13:12] VITALS: BMI 31.7
[2021-12-31 16:04] VITALS: BP 131/71; PULSE 86; RESP 14; TEMP 36.4; O2SAT 95; BMI 30.2
--- NOTE | 2021-12-31 17:54 | EDS_ITS ---
HPI History of Present Illness Chief Complaint: Allergic Reaction Narrative Narrative: 86-year-old female presenting with rash to the right side of her face and along her lower jaw. This does involve the lower part of the ear. Patient states that started a couple of days ago. Patient initially states she thought she had fleas in her hair and was treating this just prior to this rash erupting. She denies any inner ear pain, tinnitus, vertigo. She denies any difficulty swallowing or breathing. Denies any trauma. No fever or chills. She reports that she did have chickenpox as a child. [facility] Medical History Abnormal stress echo Arthritis Atherosclerosis of [place] coronary artery of [place] heart without angina pecto ris Bilateral lower extremity edema Diabetes Essential (primary) hypertension Essential hypertension Fatigue GERD (gastroesophageal reflux disease) Hyperlipidemia, unspecified Knee pain Limb weakness NECK/BACK PAIN Presence of stent in coronary artery (~12/23/18) PVD (peripheral vascular disease) UNEXPLAINED BRUISES Home Medications aspirin 81 mg tablet,delayed release 81 mg PO DAILY@0800 03/08/14 [History Last Taken 12/23/18] omeprazole 20 mg capsule,delayed release 20 mg PO DAILY 03/08/14 [History Last Taken 12/23/18] Knee High Compression Stockings #2 ea 03/20/18 [Rx Last Taken Unknown] nitroglycerin 0.4 mg sublingual tablet 0.4 mg sublingual Q5-15M PRN chest pain #25 tabs 08/06/20 [Rx Last Taken Unknown] carvedilol 6.25 mg tablet 6.25 mg PO BID #180 tabs 12/26/21 [Rx Last Taken Unknown] furosemide 40 mg tablet 40 mg PO DAILY #90 tabs 12/26/21 [Rx Last Taken Unknown] isosorbide mononitrate 60 mg tablet,extended release 24 hr 60 mg PO DAILY #90 tabs 12/26/21 [Rx Last Taken Unknown] losartan 50 mg-hydrochlorothiazide 12.5 mg tablet 1 tab PO QDAY #90 tabs 12/26/21 [Rx Last Taken Unknown] simvastatin 40 mg tablet 40 mg PO QPM #90 tabs 12/26/21 [Rx Last Taken Unknown] acyclovir 800 mg tablet 800 mg PO 5X/DAY #35 tabs 12/31/21 [Rx Last Taken Unknown] prednisone 50 mg tablet 60 mg PO DAILY 5 days #6 tabs 12/31/21 [Rx Last Taken Unknown] Allergy/AdvReac Type Severity Reaction Status Date / Time lisinopril AdvReac cough Verified 12/31/21 16:06 Family History Father CAD (coronary artery disease) Brother CAD (coronary artery disease) Surgical History H/O coronary artery bypass surgery (12/08/94) Presence of coronary angioplasty implant and graft (~12/23/18) Social History Smoking Status: Never smoker ROS ROS ED Constitutional Constitutional ED: Denies chills or fever(s) Eyes Eyes: Denies change in vision or diplopia ENT ENT ED: Denies rhinorrhea or sore throat Cardiovascular Cardiovascular: Denies chest pain or palpitations Respiratory/Chest Respiratory/Chest: Denies cough or dyspnea Gastrointestinal Gastrointestinal: Denies abdominal pain or constipation Genitourinary Genitourinary ED: Denies dysuria or hematuria Musculoskeletal Musculoskeletal: Denies arthralgias Integumentary Reports rash Neurologic Neurologic: Denies headache(s) or paresthesias Psychiatric Psychiatric: Denies anxiety or depression EXAM Physical Exam Const Vital Signs: 12/31/21 16:04 Temperature 97.6 F L Temperature Source Temporal Pulse Rate 86 Respiratory Rate 14 Blood Pressure 131/71 H Blood Pressure Mean 91 Pulse Ox 95 Oxygen Delivery Method Room Air Positive well nourished General Appearance ED: NAD; Negative for pallor HEENT Reports moist mucous membranes Negative for trauma Tympanic Membrane ED: Yes TM's normal bilaterally Eyes PERRL and EOMs intact bilaterally Resp normal respiratory effort and clear to auscultation bilaterally Cardio regular rate and regular rhythm Neuro oriented x3 and CN's II-XII intact bilaterally Sensorium / Orientation: alert Psych mental status grossly normal Skin Skin Narrative: Vesicular rash noted in a dermatomal pattern from the lower aspect of the neck and jawline. There is some irritation to the right ear as well. The right TM shows no lesions. No ocular involvement. General Skin Exam: Negative for jaundice or pallor MDM MDM MDM Narrative Medical decision making narrative: Patient presenting with shingles. She initially thought she had more fleabites. This does not look like cellulitis. Patient is not having systemic signs or symptoms. Her TM is normal. Patient will be started on acyclovir and prednisone here in the ED. She is counseled to watch her blood sugars at home and she has a way to do this. She will follow-up with her PCP to ensure resolution. Impression: 1. Varicella-zoster Lab Data Attestation: I reviewed the patient's lab results. Discharge Plan Triage Chief Complaint: Allergic Reaction ED Provider: Dinesh Garduno Dx/Rx/DC Orders Instructions: ED Shingles (Herpes Zoster) Prescriptions: New acyclovir 800 mg tablet 800 mg PO 5X/DAY Qty: 35 0RF prednisone 50 mg tablet 60 mg PO DAILY 5 Days Qty: 6 0RF No Action nitroglycerin 0.4 mg tablet, sublingual 0.4 mg SUBLINGUAL Q5-15M PRN (Reason: chest pain) Qty: 25 3RF aspirin 81 MG tablet 81 mg PO DAILY@0800 omeprazole 20 MG capsule 20 mg PO DAILY (DME) Knee High Compression Stockings 20-30 mmhg Qty: 2 0RF Dose Instruction: As directed Rx Instructions: As directed simvastatin 40 mg tablet 40 mg PO QPM Qty: 90 3RF losartan-hydrochlorothiazide 50-12.5 mg tablet 1 tab PO QDAY Qty: 90 3RF furosemide 40 mg tablet 40 mg PO DAILY Qty: 90 3RF isosorbide mononitrate 60 mg tablet extended release 24 hr 60 mg PO DAILY Qty: 90 3RF carvedilol 6.25 mg tablet 6.25 mg PO BID Qty: 180 3RF Primary Care Provider: Sam Rojas Referrals: Sam Rojas MD [Primary Care Provider] - Disposition Disposition: Home, Self Care
[2021-12-31] MEDS: predniSONE 20 MG Tablet 60 MG PO (18:26)
[2021-12-31] MEDS: Acyclovir 800 MG Tablet PO (18:27)
[2021-12-31 18:32] VITALS: BP 151/71; PULSE 74; RESP 16; O2SAT 96
== END 2021-12-31 18:44 | disposition home or self-care (01) ==
PROVIDERS: Emergency Provider Student in an Organized Health Care Education/Training Program; PCP Family Medicine; Visit Provider Student in an Organized Health Care Education/Training Program
DX: B01.9 Varicella without complication (principal); E11.51 Type 2 diabetes mellitus with diabetic peripheral angiopathy without gangrene; I25.10 Atherosclerotic heart disease of native coronary artery without angina pectoris; E78.5 Hyperlipidemia, unspecified; I10 Essential (primary) hypertension; Z95.1 Presence of aortocoronary bypass graft; Z95.5 Presence of coronary angioplasty implant and graft; Z79.82 Long term (current) use of aspirin; Z79.899 Other long term (current) drug therapy
CPT/HCPCS: 99282

== ENCOUNTER 2022-02-15 16:42 | Emergency (ER) | payer MEDICARE, SELFPAY ==
[2021-05-16 13:12] VITALS: BMI 31.7
[2022-02-15 16:44] VITALS: BP 148/76; PULSE 97; RESP 16; TEMP 36.6; O2SAT 98; BMI 28.7
--- NOTE | 2022-02-15 19:19 | EX.ED.DYSGE1 ---
HPI History of Present Illness Chief Complaint: Rash Informant: patient and family Narrative Narrative: Patient presents with postherpetic neuralgia pain. She had shingles back in December. She showed me a picture of the area that was affected. I read her chart here. The rash is now gone but she states the pain is just not going away. She does not have anything for pain at home. She denies any allergies. She states is just frustrating because she cannot get it to go away. No fevers chills. No trouble breathing. She states the pain is in the exact same area as the shingles. 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 Bilateral lower extremity edema Diabetes Essential (primary) hypertension Essential hypertension Fatigue GERD (gastroesophageal reflux disease) Hyperlipidemia, unspecified Knee pain Limb weakness NECK/BACK PAIN Presence of stent in coronary artery (~12/23/18) PVD (peripheral vascular disease) UNEXPLAINED BRUISES Home Medications aspirin 81 mg tablet,delayed release 81 mg PO DAILY@0800 03/08/14 [History Last Taken 12/23/18] omeprazole 20 mg capsule,delayed release 20 mg PO DAILY 03/08/14 [History Last Taken 12/23/18] Knee High Compression Stockings #2 ea 03/20/18 [Rx Last Taken Unknown] nitroglycerin 0.4 mg sublingual tablet 0.4 mg sublingual Q5-15M PRN chest pain #25 tabs 08/06/20 [Rx Last Taken Unknown] carvedilol 6.25 mg tablet 6.25 mg PO BID #180 tabs 12/26/21 [Rx Last Taken Unknown] furosemide 40 mg tablet 40 mg PO DAILY #90 tabs 12/26/21 [Rx Last Taken Unknown] isosorbide mononitrate 60 mg tablet,extended release 24 hr 60 mg PO DAILY #90 tabs 12/26/21 [Rx Last Taken Unknown] losartan 50 mg-hydrochlorothiazide 12.5 mg tablet 1 tab PO QDAY #90 tabs 12/26/21 [Rx Last Taken Unknown] simvastatin 40 mg tablet 40 mg PO QPM #90 tabs 12/26/21 [Rx Last Taken Unknown] acyclovir 800 mg tablet 800 mg PO 5X/DAY #35 tabs 12/31/21 [Rx Last Taken Unknown] prednisone 50 mg tablet 50 mg PO DAILY 7 days #7 tabs 12/31/21 [Rx Last Taken Unknown] hydrocodone-acetaminophen 5-325mg 5mg-325mg 1 tab PO Q6H PRN pain 3 days #10 tabs 02/15/22 [Rx Last Taken Unknown] Allergy/AdvReac Type Severity Reaction Status Date / Time lisinopril AdvReac cough Verified 02/15/22 16:43 Family History Father CAD (coronary artery disease) Brother CAD (coronary artery disease) Surgical History H/O coronary artery bypass surgery (12/08/94) Presence of coronary angioplasty implant and graft (~12/23/18) Social History Smoking Status: Never smoker ROS ROS ED Constitutional Constitutional ED: Denies chills or fever(s) ENT ENT ED: Reports other Details: He does have some pain along the side of the neck and jaw consistent with the area of the rash. But no actual ear pain. No rhinorrhea. No epistaxis. No facial pain or swelling. No congestion. ; Denies ear pain, rhinorrhea or sore throat Cardiovascular Cardiovascular: Denies chest pain or palpitations Respiratory/Chest Respiratory/Chest: Denies cough or dyspnea Gastrointestinal Gastrointestinal: Denies nausea or vomiting Musculoskeletal Musculoskeletal: Reports neck pain; Denies arthralgias or back pain Integumentary Reports rash and other Details: See history of present illness. Rashes actually much better. Neurologic Neurologic: Denies headache(s) or paresthesias Hematologic/Lymphatic Hematologic/Lymphatic: Denies easy bleeding or easy bruising Allergic/Immunologic Allergic/Immunologic ED: Denies urticaria EXAM Physical Exam Const Vital Signs: 02/15/22 16:44 Temperature 97.9 F Temperature Source Temporal Pulse Rate 97 Respiratory Rate 16 Blood Pressure 148/76 H Blood Pressure Mean 100 Pulse Ox 98 Oxygen Delivery Method Room Air Positive well nourished and well developed General Appearance ED: well developed and NAD HEENT HEENT Narrative: The rash is essentially gone. There is a hint of scarring along the lower jaw back of the neck and side of the neck. This compares with the rash when she had it. I did look at a picture that was brought in by the patient and family. No lymphadenopathy. No swelling. No secondary infections. Eyes EOMs intact bilaterally Resp normal respiratory effort and clear to auscultation bilaterally Cardio regular rate and regular rhythm GI normal to inspection, nondistended, normoactive bowel sounds and non-tender Back/Spine no CVA tenderness Extremity normal to inspection Neuro oriented x3 Sensorium / Orientation: alert Psych mental status grossly normal Skin Skin Narrative: See above. MDM MDM MDM Narrative Medical decision making narrative: I do not think this patient needs extensive work-up. She has postherpetic neuralgia. Evidently she had the rash for approximately 2 weeks prior to initial treatment. Combination of that her age and female sex increases the risk of postherpetic neuralgia. My concern is that getting her on gabapentin and increasing this dose to an effective dose is likely very hard at her age. We will try hydrocodone to see if this just eases some of her pain. She should follow-up with her primary physician she did not. There may be advantage to get her slowly on gabapentin and seeing if they can convert to that. If she redevelops rash, trouble breathing or any other concerns they should return. She also has no neurologic symptoms. Discharge Plan Triage Chief Complaint: Rash ED Provider: Christian Gagnon Dx/Rx/DC Orders Clinical Impression: PHN (postherpetic neuralgia) Instructions: ED Shingles (Herpes Zoster) Prescriptions: New hydrocodone-acetaminophen 5-325 mg tablet 1 tab PO Q6H PRN (Reason: pain) 3 Days Qty: 10 0RF No Action nitroglycerin 0.4 mg tablet, sublingual 0.4 mg SUBLINGUAL Q5-15M PRN (Reason: chest pain) Qty: 25 3RF aspirin 81 MG tablet 81 mg PO DAILY@0800 omeprazole 20 MG capsule 20 mg PO DAILY acyclovir 800 mg tablet 800 mg PO 5X/DAY Qty: 35 0RF prednisone 50 mg tablet 50 mg PO DAILY 7 Days Qty: 7 0RF (DME) Knee High Compression Stockings 20-30 mmhg Qty: 2 0RF Dose Instruction: As directed Rx Instructions: As directed simvastatin 40 mg tablet 40 mg PO QPM Qty: 90 3RF losartan-hydrochlorothiazide 50-12.5 mg tablet 1 tab PO QDAY Qty: 90 3RF Hold Instructions: hypotension furosemide 40 mg tablet 40 mg PO DAILY Qty: 90 3RF isosorbide mononitrate 60 mg tablet extended release 24 hr 60 mg PO DAILY Qty: 90 3RF carvedilol 6.25 mg tablet 6.25 mg PO BID Qty: 180 3RF Primary Care Provider: Sam Rojas Referrals: Sam Rojas MD [Primary Care Provider] - As soon as possible Disposition Disposition: Home, Self Care
[2022-02-15] MEDS: HYDROcodone Bitartrate/Apap 5/325 Tablet PO (19:37)
== END 2022-02-15 19:39 | disposition home or self-care (01) ==
PROVIDERS: Emergency Provider Emergency Medicine; PCP Family Medicine; Visit Provider Emergency Medicine
DX: B02.29 Other postherpetic nervous system involvement (principal); I25.10 Atherosclerotic heart disease of native coronary artery without angina pectoris; I10 Essential (primary) hypertension; E78.5 Hyperlipidemia, unspecified; Z95.5 Presence of coronary angioplasty implant and graft; Z79.82 Long term (current) use of aspirin; Z79.899 Other long term (current) drug therapy
CPT/HCPCS: 99283

== ENCOUNTER → 2023-08-01 | Outpatient (CLI) | payer MEDICARE, SELFPAY ==
[2021-05-16 13:12] VITALS: BMI 31.7
[2023-08-01 17:35] LABS: Absolute Lymphocyte Count 1.11 X10^3/uL (0.83-4.51); Absolute Neutrophil Count 3.2 X10^3/uL (2.0-7.7); Basophil# 0.05 X10^3/uL; Basophil% 1.1 % (0-1); Eosinophil# 0.03 X10^3/uL; Eosinophils% 0.6 % (0-5); Hematocrit 38.7 % (37-47); Hemoglobin 12.3 g/dL (12.0-15.0); Lymphocyte # 1.11 X10^3/ul (0.83-4.51); Lymphocyte % 23.3 % (19-41); Mean Corp Hgb Conc 31.8 g/dL (32-36); Mean Corpuscular Volume 84.9 fL (81-99); Mean Platelet Vol. 10.1 fl (6.2-12.0); Monocyte# 0.33 X10^3/uL; Monocyte% 6.9 % (0-10); NRBC Flagged by Analyzer 0 % (0-5); Neutrophil # 3.23 X10^3/uL (2.7-7.7); Neutrophil % 67.9 % (47-70); Platelet Count 350 K/mm3 (150-450); RBC Distribution Width CV 14.9 % (11.6-14.6); RBC Distribution Width SD 45.3 fl (35.1-43.9); Red Blood Count 4.56 M/mm3 (4.2-5.4); White Blood Count 4.8 K/mm3 (4.4-11.0)
[2023-08-01 17:56] LABS: Hemoglobin A1c 6.1 % (3.8-5.6)
[2023-08-01 18:28] LABS: Anion Gap 6 (5-15); BUN 23 mg/dL (7-18); BUN/Creat Ratio 24.6 RATIO (10-20); Calcium,Total 9.2 mg/dL (8.5-10.1); Chloride 105 mmol/L (98-107); Cholesterol 317 mg/dL (200); Creatinine, Serum 0.93 mg/dL (0.55-1.02); EST Glomerular Filtration Rate 60 mL/min (>60); Est Glom Filt Rate - Afr Amer 73 mL/min (>60); Glucose 127 mg/dL (74-106); High Density Lipoprotein 88 mg/dL; Potassium 3.3 mmol/L (3.5-5.1); Sodium Level 140 mmol/L (136-145); Triglycerides 101 mg/dL; Very Low Density Lipoprotein 20 mg/dL (5-40)
== END | disposition home or self-care (01) ==
LOC: MFPLAB 17:05
PROVIDERS: PCP Family Medicine; Visit Provider Family Medicine
DX: E11.9 Type 2 diabetes mellitus without complications (principal); K92.1 Melena
CPT/HCPCS: 36415; 80048; 80061; 83036; 85025

== ENCOUNTER 2023-08-14 05:17 | Inpatient (IN) | payer MEDICARE, SELFPAY ==
[2021-05-16 13:12] VITALS: BMI 31.7
[2023-08-14] VITALS (18 sets, daily range): BP systolic 129–211; BP diastolic 60–116; PULSE 70–100; RESP 12–22; TEMP 36.2–37.1; O2SAT 95–99; BMI 22.8; BMI 21.4
--- NOTE | 2023-08-14 05:19 | EKG12_ITS ---
Test Reason : STROKE Blood Pressure : / mmHG Vent. Rate : 078 BPM Atrial Rate : 000 BPM P-R Int : 000 ms QRS Dur : 084 ms QT Int : 378 ms P-R-T Axes : 000 039 045 degrees QTc Int : 430 ms Atrial fibrillation Cannot rule out Anterior infarct , age undetermined Abnormal ECG Confirmed by Ervin Esquivel ([id number]), medical transcription editor FANNY MARADIAGA ([id number]) on 08/15/2023 5:47:36 AM Referred By: Confirmed By:Ervin Esquivel
--- NOTE | 2023-08-14 05:19 | CT_ITS ---
EXAM: CT HEAD WITHOUT INTRAVENOUS CONTRAST CLINICAL INDICATION: CVA TECHNIQUE: Multiple axial images were obtained of the head without intravenous contrast. This CT exam was performed using one or more of the following dose reduction techniques: automated exposure control, adjustment of the mA and/or kV according to patient size, and/or use of iterative reconstruction technique. RADIATION DOSE: CTDIvol = 44.99 mGy, DLP = 779.24 mGy-cm COMPARISON: No relevant prior studies available. FINDINGS: BRAIN AND EXTRA-AXIAL SPACES: Areas of cortical low density involving the right posterior parietal and occipital cortex that likely represent acute infarct. Bilateral multiple areas of low density in the basal ganglia regions that likely represent lacunar infarcts of uncertain age. Moderate generalized atrophy. Moderate low density bilaterally in the deep white matter. No intra- or extra-axial hemorrhage. No intracranial mass or mass effect. Posterior fossa structures are unremarkable. No hydrocephalus. Basal cisterns are patent. BONES/JOINTS: Unremarkable. No discrete lytic or blastic abnormalities. SINUSES: Unremarkable as visualized. Clear. MASTOID AIR CELLS: Unremarkable. Clear. ORBITS: Visualized globes, extraocular muscles, optic nerves and retrobulbar fat appear unremarkable. CT/STROKE Brain/Head without Cont IMPRESSION: 1. Areas of cortical low density involving the right posterior parietal and occipital cortex that likely represent acute infarct. No hemorrhage. 2. Bilateral multiple areas of low density in the basal ganglia regions that likely represent lacunar infarcts of uncertain age. 3. Moderate generalized atrophy. Moderate low density bilaterally in the deep white matter. This likely represents chronic small vessel ischemic changes in the deep white matter. ASSESSMENT: ASPECTS ([place] Stroke Program Early CT Score) is 6 because of the indeterminate bilateral basal ganglia region abnormalities. N.B. : The above Results were Read Back by Ervin Tavarez MD to Anup Hankins DO, and understanding confirmed on 08/14/2023 06:01:30 (ET). Electronically Signed: Ervin Tavarez MD at 6:04 EDT ,
--- NOTE | 2023-08-14 05:19 | RAD_ITS ---
EXAM: XR CHEST, 1 VIEW CLINICAL INDICATION: NEURO DEFICIT, ACUTE, STROKE SUSPECTED TECHNIQUE: Frontal view of the chest. COMPARISON: No relevant prior studies available. FINDINGS: LUNGS AND PLEURAL SPACES: Unremarkable. No consolidation or edema. No pneumothorax. No effusion. HEART: Unremarkable. Cardiac silhouette not enlarged. MEDIASTINUM: Central airways and mediastinal contour are unremarkable. BONES/JOINTS: Sternal wires. No acute fracture. SOFT TISSUES: Unremarkable. UPPER ABDOMEN: Marked apparent elevation of the left hemidiaphragm. RAD/Chest 1 View IMPRESSION: 1. No acute cardiopulmonary abnormality. 2. Marked apparent elevation of the left hemidiaphragm. Diaphragmatic hernia not excluded. Electronically Signed: Ervin Tavarez MD at 7:13 EDT ,
--- NOTE | 2023-08-14 05:20 | CT_ITS ---
EXAM: CT ANGIOGRAPHY HEAD AND NECK WITH INTRAVENOUS CONTRAST CLINICAL INDICATION: CVA TECHNIQUE: [place]/head and neck CT angiography protocol performed with intravenous contrast. This CT exam was performed using one or more of the following dose reduction techniques: automated exposure control, adjustment of the mA and/or kV according to patient size, and/or use of iterative reconstruction technique. MIP reconstructed images were created and reviewed. CONTRAST: 100 cc of Isovue-[id number] IV. RADIATION DOSE: CTDIvol = 17.16 mGy, DLP = 454.49 mGy-cm COMPARISON: No relevant prior studies available. FINDINGS: HEAD: RIGHT ANTERIOR CEREBRAL ARTERY: Unremarkable. No occlusion or significant stenosis. Anterior communicating artery is present. No aneurysm. RIGHT MIDDLE CEREBRAL ARTERY: Unremarkable. No occlusion or significant stenosis. No aneurysm. RIGHT POSTERIOR CEREBRAL ARTERY: Unremarkable. No occlusion or significant stenosis. No aneurysm. RIGHT INTRACRANIAL INTERNAL CAROTID ARTERY: Moderate atherosclerotic changes right intracavernous internal carotid artery without hemodynamic significant stenosis. No dissection or occlusion. RIGHT INTRACRANIAL VERTEBRAL ARTERY: Unremarkable. No significant stenosis. No dissection or occlusion. LEFT ANTERIOR CEREBRAL ARTERY: Unremarkable. No occlusion or significant stenosis. No aneurysm. LEFT MIDDLE CEREBRAL ARTERY: Unremarkable. No occlusion or significant stenosis. No aneurysm. LEFT POSTERIOR CEREBRAL ARTERY: Unremarkable. No occlusion or significant stenosis. No aneurysm. LEFT INTRACRANIAL INTERNAL CAROTID ARTERY: Moderate atherosclerotic changes left intracavernous internal carotid artery without hemodynamic significant stenosis. No dissection or occlusion. LEFT INTRACRANIAL VERTEBRAL ARTERY: Unremarkable. No significant stenosis. No dissection or occlusion. BASILAR ARTERY: Unremarkable. No occlusion or significant stenosis. No aneurysm. OTHER VASCULATURE: No vascular malformation. BRAIN AND EXTRA-AXIAL SPACES: Mild irregular narrowing of some small vessels in the right sylvian fissure without definite occlusion. NECK: RIGHT COMMON CAROTID ARTERY: Unremarkable. No significant stenosis. No dissection or occlusion. RIGHT EXTRACRANIAL INTERNAL CAROTID ARTERY: Moderate atherosclerotic changes right carotid bulb and proximal right internal carotid artery with an approximate 40% diameter stenosis. No dissection or occlusion. RIGHT EXTERNAL CAROTID ARTERY: Unremarkable. No occlusion. RIGHT EXTRACRANIAL VERTEBRAL ARTERY: Unremarkable. No significant stenosis. No dissection or occlusion. LEFT COMMON CAROTID ARTERY: Unremarkable. No significant stenosis. No dissection or occlusion. LEFT EXTRACRANIAL INTERNAL CAROTID ARTERY: Mild atherosclerotic changes left carotid bulb without hemodynamically significant stenosis. No dissection or occlusion. LEFT EXTERNAL CAROTID ARTERY: Unremarkable. No occlusion. LEFT EXTRACRANIAL VERTEBRAL ARTERY: Unremarkable. No significant stenosis. No dissection or occlusion. BRACHIOCEPHALIC AND SUBCLAVIAN ARTERIES: Unremarkable as visualized. No occlusion or significant stenosis. LUNG APICES: Unremarkable as visualized. HEAD and NECK: BONES/JOINTS: Unremarkable. No discrete lytic or blastic abnormalities. SOFT TISSUES: Unremarkable. CAROTID STENOSIS REFERENCE USING NASCET CRITERIA: % ICA stenosis = (1 - narrowest ICA diameter/diameter of distal cervical ICA) x 100. Mild - <50% stenosis. Moderate - 50-69% stenosis. Severe - 70-94% stenosis. Near occlusion - 95-99% stenosis. Occluded - 100% stenosis. CT/STROKE CTA Head AND Neck W/Con IMPRESSION: 1. Moderate atherosclerotic changes right carotid bulb and proximal right internal carotid artery with an approximate 40% diameter stenosis. 2. Moderate atherosclerotic changes right intracavernous internal carotid artery without hemodynamic significant stenosis. 3. Moderate atherosclerotic changes left intracavernous internal carotid artery without hemodynamic significant stenosis. 4. Mild atherosclerotic changes left carotid bulb without hemodynamically significant stenosis. 5. No large vessel occlusion. 6. Mild irregular narrowing of some small vessels in the right sylvian fissure without definite occlusion. N.B. : The above Results were Read Back by Ervin Tavarez MD to Anup Hankins DO, and understanding confirmed on 08/14/2023 06:32:39 (ET). Electronically Signed: Ervin Tavarez MD at 6:34 EDT ,
[2023-08-14 05:53] LABS: Absolute Lymphocyte Count 0.51 X10^3/uL (0.83-4.51); Absolute Neutrophil Count 12.4 X10^3/uL (2.0-7.7); Basophil# 0.04 X10^3/uL; Basophil% 0.3 % (0-1); Hematocrit 36.1 % (37-47); Hemoglobin 11.5 g/dL (12.0-15.0); Lymphocyte # 0.51 X10^3/ul (0.83-4.51); Lymphocyte % 3.7 % (19-41); Mean Corp Hgb Conc 31.9 g/dL (32-36); Mean Corpuscular Hgb 26.7 pg (27.0-32.0); Mean Corpuscular Volume 83.8 fL (81-99); Mean Platelet Vol. 10.4 fl (6.2-12.0); Monocyte# 0.76 X10^3/uL; Monocyte% 5.5 % (0-10); NRBC Flagged by Analyzer 0 % (0-5); Neutrophil # 12.43 X10^3/uL (2.7-7.7); Neutrophil % 90.1 % (47-70); POSITIVE DIFFERENTIAL YES; Platelet Count 324 K/mm3 (150-450); RBC Distribution Width CV 14.6 % (11.6-14.6); RBC Distribution Width SD 44.7 fl (35.1-43.9); Red Blood Count 4.31 M/mm3 (4.2-5.4); White Blood Count 13.8 K/mm3 (4.4-11.0)
[2023-08-14 06:02] LABS: International Normalized Ratio 1.1; Prothrombin Time (Protime)PT. 14.1 SECONDS (11.7-14.9)
[2023-08-14 06:03] LABS: Partial Thromboplast Time 28.2 Seconds (24.1-36.2)
[2023-08-14 06:28] LABS: Anion Gap 12 (5-15); BUN 42 mg/dL (7-18); BUN/Creat Ratio 21.9 RATIO (10-20); Calcium,Total 9.1 mg/dL (8.5-10.1); Chloride 101 mmol/L (98-107); Creatinine, Serum 1.92 mg/dL (0.55-1.02); EST Glomerular Filtration Rate 26 mL/min (>60); Est Glom Filt Rate - Afr Amer 32 mL/min (>60); Estimated Creatinine Clearance 15.58 ml/min; Glucose 277 mg/dL (74-106); Potassium 4.4 mmol/L (3.5-5.1); Sodium Level 136 mmol/L (136-145); Troponin-I HS 14 pg/mL (3.0-54.0)
--- NOTE | 2023-08-14 07:16 | EX.ED.DYSGE1 ---
HPI History of Present Illness Chief Complaint: Stroke Alert Informant: family and EMS Narrative Narrative: 88-year-old female history of coronary artery disease presenting from home with prehospital stroke alert. The patient reportedly was last seen at 2100 hrs. in the kitchen with her walker. Family states that they found her this morning sitting on her walker the same place with a last saw her. She was not speaking and not moving the right side of her body. Family is unable to come to the hospital at this time. Reportedly not on any blood thinners taking aspirin. Patient herself cannot provide any information [facility] Medical History Abnormal stress echo Arthritis Atherosclerosis of [place] coronary artery of [place] heart without angina pectoris Bilateral lower extremity edema Diabetes Essential (primary) hypertension Essential hypertension Fatigue GERD (gastroesophageal reflux disease) Hyperlipidemia, unspecified Knee pain Limb weakness NECK/BACK PAIN Presence of stent in coronary artery (~12/23/18) PVD (peripheral vascular disease) UNEXPLAINED BRUISES Home Medications aspirin 81 mg tablet,delayed release 81 mg PO DAILY@0800 03/08/14 [History Last Taken 12/23/18] Knee High Compression Stockings #2 ea 03/20/18 [Rx Last Taken Unknown] nitroglycerin 0.4 mg sublingual tablet 0.4 mg sublingual Q5-15M PRN chest pain #25 tabs 08/06/20 [Rx Last Taken Unknown] carvedilol 6.25 mg tablet 6.25 mg PO BID #180 tabs 12/26/21 [Rx Last Taken Unknown] furosemide 40 mg tablet 40 mg PO DAILY #90 tabs 12/26/21 [Rx Last Taken Unknown] isosorbide mononitrate 60 mg tablet,extended release 24 hr 60 mg PO DAILY #90 tabs 12/26/21 [Rx Last Taken Unknown] losartan 50 mg-hydrochlorothiazide 12.5 mg tablet 1 tab PO QDAY #90 tabs 12/26/21 [Rx Last Taken Unknown] donepezil 5 mg tablet 5 mg PO DAILY 08/14/23 [History Last Taken Unknown] gabapentin 300 mg/6 mL (6 mL) oral solution 300 mg PO QHS 08/14/23 [History Last Taken Unknown] Allergy/AdvReac Type Severity Reaction Status Date / Time lisinopril AdvReac cough Verified 02/15/22 16:43 Family History Father CAD (coronary artery disease) Brother CAD (coronary artery disease) Surgical History H/O coronary artery bypass surgery (12/08/94) Presence of coronary angioplasty implant and graft (~12/23/18) Social History Smoking Status: Never smoker ROS ROS ED Review of Systems ROS Unobtainable: due to mental status EXAM Physical Exam Const Vital Signs: 08/14/23 05:40 08/14/23 06:08 08/14/23 06:00 Temperature 98.1 F 98.1 F Temperature Source Axillary Axillary Pulse Rate 100 76 Respiratory Rate 19 H 19 H Blood Pressure 190/90 H Blood Pressure Mean 123 Pulse Ox 97 97 Oxygen Delivery Method Room Air Room Air Room Air 08/14/23 06:00 08/14/23 06:29 08/14/23 06:45 Temperature 98.1 F 97.4 F L 98 F Temperature Source Axillary Axillary Axillary Pulse Rate 70 86 86 Respiratory Rate 18 22 H 18 Blood Pressure 211/64 H 130/104 H 153/99 H Blood Pressure Mean 113 112 117 Pulse Ox 96 99 96 Oxygen Delivery Method Room Air Room Air Room Air 08/14/23 06:59 08/14/23 07:15 08/14/23 07:30 Temperature 97.6 F L 97.6 F L 97.3 F L Temperature Source Axillary Axillary Temporal Pulse Rate 87 72 80 Respiratory Rate 21 H 20 H 12 Blood Pressure 183/116 H 194/68 H 180/90 H Blood Pressure Mean 138 110 120 Pulse Ox 96 98 98 Oxygen Delivery Method Room Air Room Air Room Air Positive well nourished, well developed and unkempt General Appearance ED: unkempt and well developed HEENT Reports normocephalic, head/scalp atraumatic and moist mucous membranes Eyes PERRL and EOMs intact bilaterally Eyes Narrative: I cannot get the patient to follow my finger but I can see her eyes moving right and left Neck no lymphadenopathy, supple and no JVD Resp normal respiratory effort and clear to auscultation bilaterally Cardio no murmurs Rhythm: abnormal rhythm irregularly irregular GI normal to inspection, nondistended, normoactive bowel sounds and non-tender Palpation: soft Back/Spine no CVA tenderness and normal ROM Extremity Extremity Narrative: Poor feet condition with significantly unkept nails and dirt. General Extremety ED: Negative for edema General Extremity: Negative for edema Neuro Sensorium / Orientation: alert Psych Appearance: unkempt Skin no rashes or lesions noted and skin turgor normal MDM MDM MDM Narrative Medical decision making narrative: Prehospital stroke team was called. She was assessed on the ambulance gurney and taken to CT. Initial head CT was discussed with the radiologist and concern for some acute small infarctions involving the right posterior hemisphere/basal ganglia. CTA was obtained with no LVO. Due to Internet/computer complications we are unable to do a visit on the computer with [facility] stroke neurology. Case was discussed on the phone with them. She is not a tPA candidate we see no LVO. My independent interpretation of the chest x-ray is no acute process. White count 13.8 hemoglobin 11.5 platelet count of 324. INR 1.1 with a PTT of 28.2. Anion gap 12 BUN of 42 with a creatinine 1.92 troponin of 14. Glucose 277. EKG shows atrial fibrillation that is rate controlled. Last EKG I have in the computer is from 2019 I do not see a history of atrial fibrillation. Plan is to admit the patient to the hospital for further stroke evaluation including MRI. Patient does have a bedbug infestation. History & Record Review Discussion w/independent historian: Patient Lab Data Attestation: I reviewed the patient's lab results. Labs: Laboratory Results - last 24 hr 08/14/23 05:46 WBC 13.8 H RBC 4.31 Hgb 11.5 L Hct 36.1 L MCV 83.8 MCH 26.7 L MCHC 31.9 L RDW Std Deviation 44.7 H RDW Coeff of Alex 14.6 Plt Count 324 MPV 10.4 Immature Gran % (Auto) 0.400 Neut % (Auto) 90.1 H Lymph % (Auto) 3.7 L [place] % (Auto) 5.5 Eos % (Auto) 0.0 Baso % (Auto) 0.3 Absolute Neuts (auto) 12.4 H Absolute Lymphs (auto) 0.51 L Nucleated RBC % 0 PT 14.1 INR 1.1 APTT 28.2 Sodium 136 Potassium 4.4 Chloride 101 Carbon Dioxide 23.0 Anion Gap 12 BUN 42 H Creatinine 1.92 H Estim Creat Clear Calc 15.58 Est GFR (MDRD) Af Amer 32 L Est GFR (MDRD) Non-Af 26 L BUN/Creatinine Ratio 21.9 H Glucose 277 H Calcium 9.1 Troponin I High Sens 14 Radiography Diagnostic Testing: Clinical Impression(s) from Imaging Studies Brain CT 08/14/23 05:19 IMPRESSION: 1. Areas of cortical low density involving the right posterior parietal and occipital cortex that likely represent acute infarct. No hemorrhage. 2. Bilateral multiple areas of low density in the basal ganglia regions that likely represent lacunar infarcts of uncertain age. 3. Moderate generalized atrophy. Moderate low density bilaterally in the deep white matter. This likely represents chronic small vessel ischemic changes in the deep white matter. ASSESSMENT: ASPECTS ([place] Stroke Program Early CT Score) is 6 because of the indeterminate bilateral basal ganglia region abnormalities. N.B. : The above Results were Read Back by Ervin Tavarez MD to Anup Hankins DO, and understanding confirmed on 08/14/2023 06:01:30 (ET). Electronically Signed: Ervin Tavarez MD at 6:04 EDT , Chest X-Ray 08/14/23 05:19 IMPRESSION: 1. No acute cardiopulmonary abnormality. 2. Marked apparent elevation of the left hemidiaphragm. Diaphragmatic hernia not excluded. Electronically Signed: Ervin Tavarez MD at 7:13 EDT , Head/Neck CTA 08/14/23 05:20 IMPRESSION: 1. Moderate atherosclerotic changes right carotid bulb and proximal right internal carotid artery with an approximate 40% diameter stenosis. 2. Moderate atherosclerotic changes right intracavernous internal carotid artery without hemodynamic significant stenosis. 3. Moderate atherosclerotic changes left intracavernous internal carotid artery without hemodynamic significant stenosis. 4. Mild atherosclerotic changes left carotid bulb without hemodynamically significant stenosis. 5. No large vessel occlusion. 6. Mild irregular narrowing of some small vessels in the right sylvian fissure without definite occlusion. N.B. : The above Results were Read Back by Ervin Tavarez MD to Anup Hankins DO, and understanding confirmed on 08/14/2023 06:32:39 (ET). Electronically Signed: Ervin Tavarez MD at 6:34 EDT , EKG Initial EKG: Attestation: I personally reviewed and interpreted this EKG as follows: Comments: Atrial Fibrillation with 78 bpm Prior EKG tracings: available for review Prior: Changed (2019) Critical Care Time Critical Care Time: Yes Critical care time (excluding procedures): 30-74 minutes (35 min), Including time spent:, Discussing w/Patient &/or Family/Repairer Hairspring, Discussing w/Consultants, Arranging Admission or Transfer and Performing Direct Patient Care at Bedside Discharge Plan Dx/Rx/DC Orders Clinical Impression: Acute stroke due to ischemia, Atrial fibrillation Disposition Disposition: Acute Care Hospital [facility] Discharge Date/Time: 08/14/23 09:10 NIHSS NIHSS 1a. Level of Consciousness: Alert; keenly responsive 1b. LOC Questions: Answers neither question correctly. 1c. LOC Commands: Performs neither task correctly. 2. Best Gaze: Normal 3. Visual: No visual loss 4. Facial Palsy: Minor paralysis (flattened nasolabial fold, asymmetry on smiling) 5a. Left Arm: No drift; arm holds 90 (or 45) degrees for full 10 seconds 5b. Right Arm: No movement 6a. Left Leg: Some effort against gravity; 6b. Right Leg: No effort against gravity; leg falls to bed immediately 7. Limb Ataxia: Absent 8. Sensory: Severe to total sensory loss; 9. Best Language: Mute, global aphasia; 10. Dysarthria: UN=Intubated or other physical barrier, explain: (Patient nonverbal) 11. Extinction and Inattention: Profound britton-inattention or extinction to more than one modality; Total: 21 Stroke Questions Stroke Team Activated: Yes a.Reviewed Inclusion/Exclusion criteria: Yes Was Patient considered for Endovascular Intervention?: No IV Thrombolytic Administered: No Critical care time (excluding procedures): Discussing w/Consultants (35 min)
--- NOTE | 2023-08-14 07:19 | ED.RN ---
This RN called the grand daughter Kiki Patrick. Kiki is supposed to be taking care of Ricardo and Ricardo lives with her. Ricardo came to the hospital with bed bugs and feces dried to her. Kiki was able to answer some questions when asked but was unsure of some as well. Kiki did not know what meds her grandmother takes. Kiki states she uses a walker and has been struggling with her memory some but did know family members names and the date on occasion. She was able to name items around the house and ask for help/ talk to other family members.
--- NOTE | 2023-08-14 07:40 | ED.RN ---
PT UNABLE TO FOLLOW COMMANDS SO UNABLE TO COMPLETE NIH. PHYSICIAN AWARE
--- NOTE | 2023-08-14 08:10 | ED.RN ---
UNABLE TO COMPLETE NIH D/T UNRESPONSIVE
--- NOTE | 2023-08-14 08:13 | MRI_ITS ---
ACR Level 3 findings have been noted. An addendum which confirms receipt of the report will follow. STUDY: MRI BRAIN WITHOUT CONTRAST REASON FOR EXAM: Female, 88 years old. ischemic stroke TECHNIQUE: Standardized multiplanar fat and water weighted pulse sequences were obtained. COMPARISON: Head CT dated August 14, 2023 FINDINGS: Moderate size acute infarcts are present in the right occipital lobe extending superiorly into the posterior superior aspect of the left parietal lobe, and in the posterior medial aspect of the left cerebellar lobe. A small acute infarct is also present in the anterior medial aspect of the right temporal lobe in the LACQUER MIXER division. A small acute infarct is present in the left lentiform nucleus and posterior limb of the internal capsule junction at the periphery of the left thalamic lobe. The left lentiform nucleus infarct also extends superiorly into the mid aspect of the left periventricular white matter. 3 additional small cortical infarcts are also present in the anterior to posterior and superior regions of the left parietal lobe. There is mild cerebral atrophy with widening of the extra-axial spaces and ventricular dilatation. There are multiple white matter hyperintensities, distributed throughout the deep white matter tracts of the cerebral hemispheres, consistent with moderate chronic white matter ischemic changes. Normal T2* images of the brain without demonstrated susceptibility artifact. There is no demonstrated hemosiderin stain. Normal bilateral basal ganglia. Normal thalami. There is no extra-axial fluid accumulation. Normal flow voids within the major intracranial circulation suggesting patency by spin echo criteria. Normal sella turcica, pituitary gland, infundibular stalk, optic chiasm and hypothalamus. Normal tectal plate and pineal gland. Normal midbrain, zain and medulla. Normal cerebellum. Normal basal cisterns. Normal bilateral temporal bones. Normal bilateral internal auditory canals. No demonstrated orbital abnormality, within the constraints of a routine brain study. Normal visualized paranasal sinuses. Normal calvarium and skull base. Normal visualized soft tissue structures. Normal visualized upper cervical spine. MRI/Brain without Contrast IMPRESSION: Multiple right and left small to moderate size acute infarcts, suggesting embolic phenomenon 1. Moderate size acute infarcts are present in the right occipital lobe extending superiorly into the posterior superior aspect of the left parietal lobe, and in the posterior medial aspect of the left cerebellar lobe. 2. A small acute infarct is also present in the anterior medial aspect of the right temporal lobe in the LACQUER MIXER division. 3. A small acute infarct is present in the left lentiform nucleus and posterior limb of the internal capsule junction at the periphery of the left thalamic lobe. The left lentiform nucleus infarct also extends superiorly into the mid aspect of the left periventricular white matter. 4. 3 additional small cortical infarcts are also present in the anterior to posterior and superior regions of the left parietal lobe. Electronically Signed: Billy Holland MD at 13:11 EDT ,
--- NOTE | 2023-08-14 08:13 | ECHOD_ITS ---
Reason For Study: TIA/STROKE Procedure This was a 2D Doppler, Color Flow transthoracic echocardiogram. The study was technically difficult. Limited views were obtained. Exam performed portable in patient room. Left Ventricle Normal LV size. The estimated ejection fraction is 60 %. No evidence for diastolic dysfunction. No regional wall motion abnormalities noted. Right Ventricle Normal RV size. Normal systolic function. Atria Normal left atrium. Normal right atrium. No doppler evidence for ASD. Bubble contrast study negative for right to left interatrial shunt. Mitral Valve There is no mitral valve stenosis. Trivial mitral valve insufficiency. Tricuspid Valve There is no tricuspid stenosis. No tricuspid valve insufficiency. Unable to estimate RV systolic pressure due to insufficient tricuspid regurgitant envelope. Aortic Valve There is no aortic stenosis. Mild (1+) aortic valve insufficiency. Pulmonic Valve There is no pulmonic valvular stenosis. No pulmonic valve insufficiency. Great Vessels Normal aortic root. Pericardium/Pleural No pericardial effusion. Medication Performed a rapid injection of agitated mix of 9 cc saline and 1cc air to assess for atrial septal defect. MMode/2D Measurements & Calculations LVIDd: 3.9 cm IVSd: 1.0 cm LVOT diam: 1.8 cm LVIDs: 2.4 cm LVPWd: 1.0 cm RVDd: 3.1 cm FS: 38.1 % LVOT area: 2.7 cm2 Ao root diam: 3.0 cm LAV(MOD-bp): 27.7 ml LVAd ap4: 13.9 cm2 LAV(MOD-bp) Indexed: 18.2 ml/m2 LVLd ap4: 6.7 cm LAV(MOD-sp2): 38.7 ml EDV(MOD-sp4): 25.8 ml LAV(MOD-sp4): 18.7 ml EDV(sp4-el): 24.2 ml LVAs ap4: 7.2 cm2 LVLs ap4: 5.7 cm ESV(MOD-sp4): 8.2 ml ESV(sp4-el): 7.7 ml EF(MOD-sp4): 68.1 % EF(sp4-el): 68.3 % LVAd ap2: 18.6 cm2 SV(MOD-sp4): 17.5 ml SV(MOD-sp2): 27.6 ml LVLd ap2: 6.9 cm EDV(MOD-sp2): 43.3 ml EDV(sp2-el): 42.7 ml LVAs ap2: 10.1 cm2 LVLs ap2: 5.9 cm ESV(MOD-sp2): 15.6 ml ESV(sp2-el): 14.7 ml EF(MOD-sp2): 63.9 % SV(sp4-el): 16.6 ml LA dimension(2D): 3.6 cm LA A4 area: 11.1 cm2 RA A4 area: 9.3 cm2 TAPSE: 1.1 cm Time Measurements MV dec time: 0.27 sec Doppler Measurements & Calculations MV E max jose: 54.4 cm/sec Lat Peak E' Jose: 6.5 cm/sec Med Peak E' Jose: 6.2 cm/sec MV A max jose: 96.0 cm/sec E/E' lat: 8.3 E/E' med: 8.8 MV E/A: 0.57 Ao V2 max: 129.1 cm/sec LV V1 max: 104.8 cm/sec MV dec slope: 204.1 cm/sec2 Ao max P.7 mmHg LV V1 max P.4 mmHg Ao V2 mean: 91.3 cm/sec LV V1 mean P.1 mmHg Ao mean P.7 mmHg LV V1 mean: 67.8 cm/sec Ao V2 VTI: 25.4 cm LV V1 VTI: 15.9 cm AV (velocity ratio): 0.63 MK(I,D): 1.7 cm2 MK(V,D): 2.2 cm2 SV(LVOT): 42.5 ml ECHO/Echo Complete Interpretation Summary The estimated ejection fraction is 60 %. No evidence for diastolic dysfunction. Trivial mitral valve insufficiency. Mild (1+) aortic valve insufficiency. Ordering Physician: Austen Lopez DO Referring Physician: Sam Rojas Performed By: An Ramirez RDCS and Student
--- NOTE | 2023-08-14 10:46 | HP.PCM.HOS_ITS ---
HPI - General General Date of Admission: 08/14/23 Date of Service: 08/14/23 Chief Complaint: Mental status change HPI Narrative JEANETTE CORRIGAN, is a 88 F who presents to the emergency room at [facility] with chief complaint of right-sided weakness and decreased mentation, patient was last seen well at 9 PM yesterday. Stroke alert was called, patient underwent a CT scan of the brain which showed evidence of right- sided strokes, this did not correlate with the patient's presentation as she had right-sided weakness. Teleneurology recommended no tenecteplase due to the timeframe when she was last seen well. They recommended admission and further workup. Patient's CTA of the head and neck did not show any large vessel occlusions. case monitor in the emergency room showed evidence of atrial fibrillation, on my examination patient did not appear to be in atrial fibs however. Labs showed an elevated white blood cell count at 13.8, hemoglobin was 11.5, chemistry profile was remarkable for creatinine of 1.92, BUN of 42, and a glucose of 277. On examination, patient was nonverbal and would not follow commands, patient did not move her right side. Patient will be admitted to PCU for acute stroke, echocardiogram will be obtained and an MRI of the brain will be obtained, she will be seen by PT and OT and speech therapy, patient will be n.p.o. for now. She will be put on rectal aspirin daily. CODE STATUS was not clarified at this time, I will need to talk to family members regarding this. [facility] Medical History Abnormal stress echo Arthritis Atherosclerosis of [place] coronary artery of [place] heart without angina pectoris Bilateral lower extremity edema Diabetes Essential (primary) hypertension Essential hypertension Fatigue GERD (gastroesophageal reflux disease) Hyperlipidemia, unspecified Knee pain Limb weakness NECK/BACK PAIN Presence of stent in coronary artery (~12/23/18) PVD (peripheral vascular disease) UNEXPLAINED BRUISES Home Medications aspirin 81 mg tablet,delayed release 81 mg PO DAILY@0800 03/08/14 [History Last Taken 12/23/18] Knee High Compression Stockings #2 ea 03/20/18 [Rx Last Taken Unknown] nitroglycerin 0.4 mg sublingual tablet 0.4 mg sublingual Q5-15M PRN chest pain #25 tabs 08/06/20 [Rx Last Taken Unknown] carvedilol 6.25 mg tablet 6.25 mg PO BID #180 tabs 12/26/21 [Rx Last Taken Unknown] furosemide 40 mg tablet 40 mg PO DAILY #90 tabs 12/26/21 [Rx Last Taken Unknown] isosorbide mononitrate 60 mg tablet,extended release 24 hr 60 mg PO DAILY #90 tabs 12/26/21 [Rx Last Taken Unknown] losartan 50 mg-hydrochlorothiazide 12.5 mg tablet 1 tab PO QDAY #90 tabs 12/26/21 [Rx Last Taken Unknown] donepezil 5 mg tablet 5 mg PO DAILY 08/14/23 [History Last Taken Unknown] gabapentin 300 mg/6 mL (6 mL) oral solution 300 mg PO QHS 08/14/23 [History Last Taken Unknown] Allergy/AdvReac Type Severity Reaction Status Date / Time lisinopril AdvReac cough Verified 02/15/22 16:43 Family History Father CAD (coronary artery disease) Brother CAD (coronary artery disease) Surgical History H/O coronary artery bypass surgery (12/08/94) Presence of coronary angioplasty implant and graft (~12/23/18) Social History Smoking Status: Never smoker ROS ROS Narrative Review of systems was unobtainable due to the patient's somnolence and lethargy Vital Signs Vital Signs Vital Signs: 08/14/23 05:40 08/14/23 06:08 08/14/23 06:00 Temperature 98.1 F 98.1 F Temperature Source Axillary Axillary Pulse Rate 100 76 Respiratory Rate 19 H 19 H Blood Pressure 190/90 H Blood Pressure Mean 123 Blood Pressure Source Blood Pressure Position Blood Pressure Location Pulse Ox 97 97 Oxygen Delivery Method Room Air Room Air Room Air 08/14/23 06:00 08/14/23 06:29 08/14/23 06:45 Temperature 98.1 F 97.4 F L 98 F Temperature Source Axillary Axillary Axillary Pulse Rate 70 86 86 Respiratory Rate 18 22 H 18 Blood Pressure 211/64 H 130/104 H 153/99 H Blood Pressure Mean 113 112 117 Blood Pressure Source Blood Pressure Position Blood Pressure Location Pulse Ox 96 99 96 Oxygen Delivery Method Room Air Room Air Room Air 08/14/23 06:59 08/14/23 07:15 08/14/23 07:30 Temperature 97.6 F L 97.6 F L 97.3 F L Temperature Source Axillary Axillary Temporal Pulse Rate 87 72 80 Respiratory Rate 21 H 20 H 12 Blood Pressure 183/116 H 194/68 H 180/90 H Blood Pressure Mean 138 110 120 Blood Pressure Source Blood Pressure Position Blood Pressure Location Pulse Ox 96 98 98 Oxygen Delivery Method Room Air Room Air Room Air 08/14/23 08:00 08/14/23 08:00 08/14/23 08:30 Temperature 97.2 F L 97.2 F L 97.7 F L Temperature Source Temporal Temporal Temporal Pulse Rate 85 82 83 Respiratory Rate 16 16 17 Blood Pressure 168/79 H 168/79 H 161/87 H Blood Pressure Mean 108 108 111 Blood Pressure Source Blood Pressure Position Blood Pressure Location Pulse Ox 96 95 96 Oxygen Delivery Method Room Air Room Air Room Air 08/14/23 09:00 08/14/23 09:32 Temperature 97.7 F L 98.6 F Temperature Source Axillary Pulse Rate 100 87 Respiratory Rate 17 14 Blood Pressure 161/87 H 204/90 H Blood Pressure Mean 111 128 Blood Pressure Source Monitor Blood Pressure Position Supine Blood Pressure Location Right Arm Pulse Ox 98 99 Oxygen Delivery Method Room Air Weight Weight: 51.4 kg Body Mass Index (BMI) 21.4 Physical Exam Const no apparent distress Constitutional Narrative: Patient's hygiene was poor, there was evidence of fecal matter over the patient's toes, toenails were long HEENT normocephalic and head/scalp atraumatic HEENT Narrative: Dry mucous membranes Neck no JVD, thyroid normal and no carotid bruits General: trachea midline Resp normal respiratory effort, no retractions, no use of accessory muscles and clear to auscultation bilaterally Auscultation: Negative for rales, rhonchi or wheezes Cardio regular rate, regular rhythm, S1 normal heart sound, S2 normal heart sound, no murmurs, no rub and no gallops GI normal to inspection, nondistended, normoactive bowel sounds, soft to palpation, non-tender and non-distended Extremity no clubbing, cyanosis or edema Extremity Narrative: Toes are dirty with evidence of fecal debris present Skin no rashes or lesions noted General Skin Exam: no breakdown Neuro CN's II-XII intact bilaterally Neuro Narrative: Patient is lethargic and somnolent, she attempts to open her eyes to verbal s timuli, she reacts to painful stimuli Psych Psych Narrative: Patient is somnolent and lethargic Results Lab / Micro Data 08/14/23 05:46 08/14/23 05:46 Labs: Laboratory Results - last 24 hr 08/14/23 05:46: WBC 13.8 H, RBC 4.31, Hgb 11.5 L, Hct 36.1 L, MCV 83.8, MCH 26.7 L, MCHC 31.9 L, RDW Std Deviation 44.7 H, RDW Coeff of Alex 14.6, Plt Count 324, MPV 10.4, Immature Gran % (Auto) 0.400, Neut % (Auto) 90.1 H, Lymph % (Auto) 3.7 L, [place] % (Auto) 5.5, Eos % (Auto) 0.0, Baso % (Auto) 0.3, Absolute Neuts (auto) 12.4 H, Absolute Lymphs (auto) 0.51 L, Nucleated RBC % 0, PT 14.1, INR 1.1, APTT 28.2, Sodium 136, Potassium 4.4, Chloride 101, Carbon Dioxide 23.0, Anion Gap 12, BUN 42 H, Creatinine 1.92 H, Estim Creat Clear Calc 15.58, Est GFR (MDRD) Af Amer 32 L, Est GFR (MDRD) Non-Af 26 L, BUN/Creatinine Ratio 21.9 H, Glucose 277 H, Calcium 9.1, Troponin I High Sens 14 Imaging Radiology Impression Brain CT 08/14/23 05:19 IMPRESSION: 1. Areas of cortical low density involving the right posterior parietal and occipital cortex that likely represent acute infarct. No hemorrhage. 2. Bilateral multiple areas of low density in the basal ganglia regions that likely represent lacunar infarcts of uncertain age. 3. Moderate generalized atrophy. Moderate low density bilaterally in the deep white matter. This likely represents chronic small vessel ischemic changes in the deep white matter. ASSESSMENT: ASPECTS ([place] Stroke Program Early CT Score) is 6 because of the indeterminate bilateral basal ganglia region abnormalities. N.B. : The above Results were Read Back by Ervin Tavarez MD to Anup Hankins DO, and understanding confirmed on 08/14/2023 06:01:30 (ET). Electronically Signed: Ervin Tavarez MD at 6:04 EDT , Chest X-Ray 08/14/23 05:19 IMPRESSION: 1. No acute cardiopulmonary abnormality. 2. Marked apparent elevation of the left hemidiaphragm. Diaphragmatic hernia not excluded. Electronically Signed: Ervin Tavarez MD at 7:13 EDT , Head/Neck CTA 08/14/23 05:20 IMPRESSION: 1. Moderate atherosclerotic changes right carotid bulb and proximal right internal carotid artery with an approximate 40% diameter stenosis. 2. Moderate atherosclerotic changes right intracavernous internal carotid artery without hemodynamic significant stenosis. 3. Moderate atherosclerotic changes left intracavernous internal carotid artery without hemodynamic significant stenosis. 4. Mild atherosclerotic changes left carotid bulb without hemodynamically significant stenosis. 5. No large vessel occlusion. 6. Mild irregular narrowing of some small vessels in the right sylvian fissure without definite occlusion. N.B. : The above Results were Read Back by Ervin Tavarez MD to Anup Hankins DO, and understanding confirmed on 08/14/2023 06:32:39 (ET). Electronically Signed: Ervin Tavarez MD at 6:34 EDT , Assessment & Plan Assessment/Plan (1) Acute stroke due to ischemia: PLAN: Plan 1. Acute ischemic stroke in the right posterior parietal and occipital cortex as well as bilateral multiple areas of low-density in the basal ganglia region that most likely represent lacunar infarcts of uncertain age-patient will be admitted to PCU, stroke workup will be instituted including echocardiogram, PT OT and speech therapy, as well as NIH scores, rectal aspirin, when the patient is able to intake orals, Lipitor will be given. Patient will need to be seen by teleneurology in consultation, patient was not a candidate for tenecteplase. #2 new onset atrial fibrillation-now in sinus rhythm, patient appears to have paroxysmal atrial fib, she will not able to be anticoagulated at this time due to her strokes #3 coronary artery disease-patient will resume her home medications when she is able to eat and take orals #4 peripheral vascular disease-patient has evidence of previous surgery to the upper inner thigh area bilaterally, this is probably secondary to peripheral vascular disease interventional surgery #5 essential hypertension-patient will resume her home medications when she is able to take orals, blood pressure will be monitored #6 acute kidney injury-patient will be given IV fluids and labs will be monito red Total clinical time spent by myself addressing the patient's medical issues, reviewing all of her data, and collaborating with patient's care team: 75 minutes Charges/Coding Visit Charges Inpatient E&M: 47770 Init Hosp L3
[2023-08-14] MEDS: 0.9% Normal Saline (1000mL) 1,000 ML 125 ML IV ×2 (10:49→19:33)
[2023-08-14] MEDS: Aspirin 300 MG Suppository RC (11:24)
[2023-08-14] MEDS: Heparin Injection (Vial) 5,000 UNIT/ML VIAL 5000 UNIT SC ×2 (11:24→23:05)
[2023-08-14 11:46] LABS: Bedside Glucose 128 mg/dL (74-106)
--- NOTE | 2023-08-14 16:32 | CON.PCM.NE_ITS ---
Assessment and Plan: Neuro Assessment/Plan JEANETTE CORRIGAN is a 88 F with a past medical history of HTN and newly diagnosed AFIB, being evaluated by Teleneurology for acute ischemic stroke. Pt presented to [facility] with AMS and right side weakness, MRI showed multiple embolic appearing strokes, pt was found to be in Afib as well. Diagnosis: cardio embolic ischemic stroke Plan: permissive HTN SBP<220 DBP>120 PT/OT speech therapy TTE High intensity statin lipitor 80 mg daily CHADVASC 2 score 6 Pt will need longterm anticoagulation for secondary stroke prevention, AC could be started 10 days post stroke(obtain CT head prior to starting AC ) HPI Consult Data Date of Consult: 08/14/23 HPI Narrative HPI Narrative: 88 F who presents to the emergency room at [facility] with chief complaint of right-sided weakness and decreased mentation, patient was last seen well at 9 PM day before the admission . as per report she was found in the same spot she was at the day before, stroke code was activated. CT head showed hypodensity concerning for acute stroke. mri showed multiple ischemic strokes [facility] Medical History Abnormal stress echo Arthritis Atherosclerosis of [place] coronary artery of [place] heart without angina pector is Bilateral lower extremity edema Diabetes Essential (primary) hypertension Essential hypertension Fatigue GERD (gastroesophageal reflux disease) Hyperlipidemia, unspecified Knee pain Limb weakness NECK/BACK PAIN Presence of stent in coronary artery (~12/23/18) PVD (peripheral vascular disease) UNEXPLAINED BRUISES Home Medications aspirin 81 mg tablet,delayed release 81 mg PO DAILY@0800 03/08/14 [History Last Taken 12/23/18] Knee High Compression Stockings #2 ea 03/20/18 [Rx Last Taken Unknown] nitroglycerin 0.4 mg sublingual tablet 0.4 mg sublingual Q5-15M PRN chest pain #25 tabs 08/06/20 [Rx Last Taken Unknown] carvedilol 6.25 mg tablet 6.25 mg PO BID #180 tabs 12/26/21 [Rx Last Taken Unknown] furosemide 40 mg tablet 40 mg PO DAILY #90 tabs 12/26/21 [Rx Last Taken Unknown] isosorbide mononitrate 60 mg tablet,extended release 24 hr 60 mg PO DAILY #90 tabs 12/26/21 [Rx Last Taken Unknown] losartan 50 mg-hydrochlorothiazide 12.5 mg tablet 1 tab PO QDAY #90 tabs 12/26/21 [Rx Last Taken Unknown] donepezil 5 mg tablet 5 mg PO DAILY 08/14/23 [History Last Taken Unknown] gabapentin 300 mg/6 mL (6 mL) oral solution 300 mg PO QHS 08/14/23 [History Last Taken Unknown] Allergy/AdvReac Type Severity Reaction Status Date / Time lisinopril AdvReac cough Verified 02/15/22 16:43 Family History Father CAD (coronary artery disease) Brother CAD (coronary artery disease) Surgical History H/O coronary artery bypass surgery (12/08/94) Presence of coronary angioplasty implant and graft (~12/23/18) Social History Smoking Status: Never smoker Vital Signs Vital Signs Vital Signs: 08/14/23 05:40 08/14/23 06:08 08/14/23 06:00 Temperature 98.1 F 98.1 F Temperature Source Axillary Axillary Pulse Rate 100 76 Pulse Strength Respiratory Rate 19 H 19 H Blood Pressure 190/90 H Blood Pressure Mean 123 Blood Pressure Source Blood Pressure Position Blood Pressure Location Pulse Ox 97 97 Oxygen Delivery Method Room Air Room Air Room Air 08/14/23 06:00 08/14/23 06:29 08/14/23 06:45 Temperature 98.1 F 97.4 F L 98 F Temperature Source Axillary Axillary Axillary Pulse Rate 70 86 86 Pulse Strength Respiratory Rate 18 22 H 18 Blood Pressure 211/64 H 130/104 H 153/99 H Blood Pressure Mean 113 112 117 Blood Pressure Source Blood Pressure Position Blood Pressure Location Pulse Ox 96 99 96 Oxygen Delivery Method Room Air Room Air Room Air 08/14/23 06:59 08/14/23 07:15 08/14/23 07:30 Temperature 97.6 F L 97.6 F L 97.3 F L Temperature Source Axillary Axillary Temporal Pulse Rate 87 72 80 Pulse Strength Respiratory Rate 21 H 20 H 12 Blood Pressure 183/116 H 194/68 H 180/90 H Blood Pressure Mean 138 110 120 Blood Pressure Source Blood Pressure Position Blood Pressure Location Pulse Ox 96 98 98 Oxygen Delivery Method Room Air Room Air Room Air 08/14/23 08:00 08/14/23 08:00 08/14/23 08:30 Temperature 97.2 F L 97.2 F L 97.7 F L Temperature Source Temporal Temporal Temporal Pulse Rate 85 82 83 Pulse Strength Respiratory Rate 16 16 17 Blood Pressure 168/79 H 168/79 H 161/87 H Blood Pressure Mean 108 108 111 Blood Pressure Source Blood Pressure Position Blood Pressure Location Pulse Ox 96 95 96 Oxygen Delivery Method Room Air Room Air Room Air 08/14/23 09:00 08/14/23 09:32 08/14/23 10:00 Temperature 97.7 F L 98.6 F 98.6 F Temperature Source Axillary Axillary Pulse Rate 100 87 87 Pulse Strength Respiratory Rate 17 14 14 Blood Pressure 161/87 H 204/90 H 204/90 H Blood Pressure Mean 111 128 128 Blood Pressure Source Monitor Monitor Blood Pressure Position Supine Supine Blood Pressure Location Right Arm Right Arm Pulse Ox 98 99 99 Oxygen Delivery Method Room Air Room Air 08/14/23 10:00 08/14/23 10:00 08/14/23 14:00 Temperature 98.6 F Temperature Source Axillary Pulse Rate 100 Pulse Strength Normal (2+) Respiratory Rate 18 Blood Pressure 179/95 H Blood Pressure Mean 123 Blood Pressure Source Monitor Blood Pressure Position Sitting Blood Pressure Location Right Arm Pulse Ox 97 Oxygen Delivery Method Room Air Room Air Weight Weight: 51.4 kg Body Mass Index (BMI) 21.4 EEG Results Procedure Details EEG Procedure Details: JEANETTE CORRIGAN is a 88 year old F with a past medical history of , who presents for evaluation of Electroencephalogram on DATE at TIME NIHSS NIHSS Nursing Documentation NIHSS Nursing Documentation: NIHSS: Ischemic Stroke/TIA Start: 08/14/23 09:44 Text: For PCU Patients: NIH and Neuro Check every 4 Status: Active hours, PRN and with change in RN caregiver. Freq: [id number] Protocol: Activity Type Activity Date Activity User E-sign Co-sign Detail Recorded Client Recorded Date Recorded By Document 08/14/23 14:00 NB Desktop 08/14/23 14:36 NB 08/14/23 14:00 NIH Stroke Scale [NIHSS] A score of 0 is normal or asymptomatic . Total possible score is 42. Inpatient: RN or Physician to activate a stroke alert for onset of new stroke symptoms or with NIHSS increase >/= 3 points. Following change in neurological status, NIHSS will be performed per physician order or more frequently PRN. -1a. Level of Consciousness Alert; keenly responsive -1b. LOC Questions Answers neither question correctly. -1c. LOC Commands Performs neither task correctly. -2. Best Gaze Normal -4. Facial Palsy Minor paralysis (flattened nasolabial fold , asymmetry on smiling) -5a. Left Arm No drift; arm holds 90 (or 45 ) degrees for full 10 seconds -5b. Right Arm Drift; arm drifts downward but doesn?t hit the bed -6a. Left Leg Some effort against gravity ; -6b. Right Leg No effort against gravity ; leg falls to bed immediately -7. Limb Ataxia Present in 1 limb -8. Sensory Mild-to- moderate sensory loss; -9. Best Language Severe aphasia; -10. Dysarthria Mild-to- moderate dysarthria; -11. Extinction and Inattention Profound britton- inattention or extinction to more than one modality; -Total 18 Query Text:A score of 0 is normal or asymptomatic. Total possible score is 42 . ED: Notify Physician for NIHSS increase by > / = 3 points. Inpatient: RN or Physician to activate a stroke alert for NIHSS increase of > / = 3 points. Physical Exam Neuro Neuro Narrative: awake alert attends, global aphasia did not follow commands, right facial droop right hemiparesis move antigravity withdraw for pain in the right leg Lab / Micro Data 08/14/23 05:46 08/14/23 05:46 Labs: Laboratory Results - last 24 hr 08/14/23 05:46: WBC 13.8 H, RBC 4.31, Hgb 11.5 L, Hct 36.1 L, MCV 83.8, MCH 26.7 L, MCHC 31.9 L, RDW Std Deviation 44.7 H, RDW Coeff of Alex 14.6, Plt Count 324, MPV 10.4, Immature Gran % (Auto) 0.400, Neut % (Auto) 90.1 H, Lymph % (Auto) 3.7 L, [place] % (Auto) 5.5, Eos % (Auto) 0.0, Baso % (Auto) 0.3, Absolute Neuts (auto) 12.4 H, Absolute Lymphs (auto) 0.51 L, Nucleated RBC % 0, PT 14.1, INR 1.1, APTT 28.2, Sodium 136, Potassium 4.4, Chloride 101, Carbon Dioxide 23.0, Anion Gap 12, BUN 42 H, Creatinine 1.92 H, Estim Creat Clear Calc 15.58, Est GFR (MDRD) Af Amer 32 L, Est GFR (MDRD) Non-Af 26 L, BUN/Creatinine Ratio 21.9 H, Glucose 277 H, Calcium 9.1, Troponin I High Sens 14 08/14/23 11:21: POC Glucose 128 H Imaging Radiology Impression Brain CT 08/14/23 05:19 IMPRESSION: 1. Areas of cortical low density involving the right posterior parietal and occipital cortex that likely represent acute infarct. No hemorrhage. 2. Bilateral multiple areas of low density in the basal ganglia regions that likely represent lacunar infarcts of uncertain age. 3. Moderate generalized atrophy. Moderate low density bilaterally in the deep white matter. This likely represents chronic small vessel ischemic changes in the deep white matter. ASSESSMENT: ASPECTS ([place] Stroke Program Early CT Score) is 6 because of the indeterminate bilateral basal ganglia region abnormalities. N.B. : The above Results were Read Back by Ervin Tavarez MD to Anup Hankins DO, and understanding confirmed on 08/14/2023 06:01:30 (ET). Electronically Signed: Ervin Tavarez MD at 6:04 EDT , Chest X-Ray 08/14/23 05:19 IMPRESSION: 1. No acute cardiopulmonary abnormality. 2. Marked apparent elevation of the left hemidiaphragm. Diaphragmatic hernia not excluded. Electronically Signed: Ervin Tavarez MD at 7:13 EDT , Head/Neck CTA 08/14/23 05:20 IMPRESSION: 1. Moderate atherosclerotic changes right carotid bulb and proximal right internal carotid artery with an approximate 40% diameter stenosis. 2. Moderate atherosclerotic changes right intracavernous internal carotid artery without hemodynamic significant stenosis. 3. Moderate atherosclerotic changes left intracavernous internal carotid artery without hemodynamic significant stenosis. 4. Mild atherosclerotic changes left carotid bulb without hemodynamically significant stenosis. 5. No large vessel occlusion. 6. Mild irregular narrowing of some small vessels in the right sylvian fissure without definite occlusion. N.B. : The above Results were Read Back by Ervin Tavarez MD to Anup Hankins DO, and understanding confirmed on 08/14/2023 06:32:39 (ET). Electronically Signed: Ervin Tavarez MD at 6:34 EDT , Brain MRI 08/14/23 08:13 IMPRESSION: Multiple right and left small to moderate size acute infarcts, suggesting embolic phenomenon 1. Moderate size acute infarcts are present in the right occipital lobe extending superiorly into the posterior superior aspect of the left parietal lobe, and in the posterior medial aspect of the left cerebellar lobe. 2. A small acute infarct is also present in the anterior medial aspect of the right temporal lobe in the [employer] division. 3. A small acute infarct is present in the left lentiform nucleus and posterior limb of the internal capsule junction at the periphery of the left thalamic lobe. The left lentiform nucleus infarct also extends superiorly into the mid aspect of the left periventricular white matter. 4. 3 additional small cortical infarcts are also present in the anterior to posterior and superior regions of the left parietal lobe. Electronically Signed: Billy Holland MD at 13:11 EDT , ADDENDUM: 08/14/23 1402 IMPRESSION: Multiple right and left small to moderate size acute infarcts, suggesting embolic phenomenon 1. Moderate size acute infarcts are present in the right occipital lobe extending superiorly into the posterior superior aspect of the left parietal lobe, and in the posterior medial aspect of the left cerebellar lobe. 2. A small acute infarct is also present in the anterior medial aspect of the right temporal lobe in the [employer] division. 3. A small acute infarct is present in the left lentiform nucleus and posterior limb of the internal capsule junction at the periphery of the left thalamic lobe. The left lentiform nucleus infarct also extends superiorly into the mid aspect of the left periventricular white matter. 4. 3 additional small cortical infarcts are also present in the anterior to posterior and superior regions of the left parietal lobe. N.B. : Kathie Boykin RN, confirmed on 08/14/2023 13:55:55 (ET) that the healthcare facility has received the radiology report. Electronically Signed: Billy Holland MD at 13:11 EDT , Echocardiogram 08/14/23 08:13 Interpretation Summary The estimated ejection fraction is 60 %. No evidence for diastolic dysfunction. Trivial mitral valve insufficiency. Mild (1+) aortic valve insufficiency. Ordering Physician: Austen Lopez DO Referring Physician: Sam Rojas Performed By: An Ramirez RDCS and Student Active Medications Active Medications Active Medications: Current Medications Generic Name Dose Route Start Last Admin Trade Name Freq PRN Reason Stop Dose Admin Aspirin 300 mg 08/14/23 10:00 08/14/23 11:24 Aspirin 300 Mg Suppository RC 300 mg DAILY ELIZA Administration Dextrose 0 gm 08/14/23 09:44 Dextrose 50%-Water 25 Gm/50 Ml Disp.Syrin IV X1 PRN Hypoglycemia Protocol Glucagon 1 mg 08/14/23 09:44 Glucagon 1 Mg/Ml Syringe IM X1 PRN Hypoglycemia Heparin Sodium (Porcine) 5,000 unit 08/14/23 10:00 08/14/23 11:24 Heparin Injection (Vial) 5,000 Unit/Ml Vial SC 5,000 unit Q12 ELIZA Administration Hydralazine HCl 5 mg 08/14/23 09:44 Hydralazine 20 Mg/Ml Vial IV Q30M PRN to maintain BP goals Sodium Chloride 1,000 mls @ 125 mls/hr 08/14/23 09:44 08/14/23 10:49 IV 125 mls/hr .Q8H ELIZA Administration Sodium Chloride 250 mls @ 15 mls/hr 08/14/23 11:54 IV .[id number] PRN Additional IVPB Infusion Sodium Chloride 250 mls @ 15 mls/hr 08/14/23 11:54 IV .[id number] PRN Saline Flush Insulin Human Lispro 0 unit 08/14/23 12:00 08/14/23 13:36 Insulin Lispro 100 Unit/Ml Insuln.Pen SC Not Given Q6 [facility] Protocol Labetalol HCl 10 - 20 mg 08/14/23 09:44 Labetalol (Prefilled) 20 Mg/4 Ml IV Q10M PRN PRN to Maintain BP Goals Ondansetron HCl 4 mg 08/14/23 09:44 Ondansetron 4 Mg/2 Ml Vial IV Q8H PRN PRN NAUSEA/VOMITING Sodium Chloride 10 - 40 ml 08/14/23 11:54 0.9% Saline Lock 10 Ml Syringe IV UD PRN SALINE FLUSH
[2023-08-14 17:16] LABS: Hemoglobin A1c 6.2 % (3.8-5.6)
[2023-08-14 18:21] LABS: Bedside Glucose 125 mg/dL (74-106)
[2023-08-15] VITALS (8 sets, daily range): BP systolic 162–223; BP diastolic 64–91; PULSE 59–79; RESP 16–18; TEMP 35.9–37.2; O2SAT 96–100; BMI 21.4
[2023-08-15 00:59] LABS: Bedside Glucose 116 mg/dL (74-106)
[2023-08-15] MEDS: Menthol/Lanolin/Calamine/Znox 113 GM Tube 1 APPLIC TOPICAL ×3 (06:21→20:10)
[2023-08-15 07:08] LABS: Bedside Glucose 101 mg/dL (74-106)
[2023-08-15 08:34] LABS: Cholesterol 241 mg/dL (200); High Density Lipoprotein 76 mg/dL; Triglycerides 113 mg/dL; Very Low Density Lipoprotein 23 mg/dL (5-40)
[2023-08-15] MEDS: 0.9% Normal Saline (1000mL) 1,000 ML 125 ML IV (09:20)
[2023-08-15] MEDS: Heparin Injection (Vial) 5,000 UNIT/ML VIAL 5000 UNIT SC ×2 (09:21→20:13)
--- NOTE | 2023-08-15 13:38 | CASEMGMT ---
Addendum entered by Ana Cristina Mendez 08/15/23 14:40: RN said patient's son David is in patient's room. SW met with David and patient. SW introduced self and role at [facility]. David confirmed he would like for patient to go to [facility] where he resides. David declined a list of SNF's. FOSTER let David know SW did make the referral to [facility] and just waiting to hear back from [facility]. Ana Cristina ALBERTO Original Note: Physician spoke with patient's son David who is currently at [facility]. David told physician he would want patient to go to [facility]. David declined a list as he would like patient at the same facility as him. SW made a referral to [facility] via [facility]. Plan: Possibly [facility] pending acceptance and pre-cert. Ana Cristina ALBERTO
[2023-08-15] MEDS: Aspirin 300 MG Suppository RC (13:47)
[2023-08-15] MEDS: Losartan Potassium 50 MG Tablet PO (13:53)
[2023-08-15] MEDS: Carvedilol 6.25 MG Tablet PO ×2 (13:53→20:13)
[2023-08-15] MEDS: hydroCHLOROthiazide 25 MG Tablet 12.5 MG PO (15:12)
--- NOTE | 2023-08-15 17:08 | PN.HOSP_ITS ---
Reason for Visit Reason for Visit: Diagnoses Cerebral infarction, unspecified (08/14/23) Subjective Subjective Patient was seen and examined today, she is more alert and is able to try to speak a few words although she does have some dysarthria. Patient was approved for oral intake by speech therapy today, I restarted the patient on her blood p ressure medications, her blood pressure has been running high and I elected to add Norvasc to her medications, I took her off her Lasix because she is already on hydrochlorothiazide. Patient's echocardiogram did not show evidence of thrombus or atrial septal defect. EF was normal Objective Data Objective Data Vital Signs: Vital Signs Temp Pulse Resp BP Pulse Ox O2 Del Method 98.8 F 59 L 16 197/66 H 99 Room Air 08/15/23 16:00 08/15/23 16:00 08/15/23 16:00 08/15/23 16:00 08/15/23 16:00 08/15/23 16:00 Oxygen Delivery Method Room Air Weight: 51.4 kg Body Mass Index (BMI) 21.4 Intake & Output: Intake and Output for Last 24 Hours 08/13/23 08/14/23 08/15/23 23:59 23:59 23:59 Intake Total 1000 / 1000 1100 / 1100 Output Total 0 / 0 150 / 150 Balance 1000 / 1000 950 / 950 Lab / Micro Data 08/14/23 05:46 08/14/23 05:46 Labs: Laboratory Results - last 24 hr 08/14/23 05:46: Hemoglobin A1c 6.2 H 08/14/23 17:48: POC Glucose 125 H 08/14/23 23:56: POC Glucose 116 H 08/15/23 06:46: POC Glucose 101 08/15/23 07:27: Triglycerides 113, Cholesterol 241 H, LDL Cholesterol 142 H, VLDL Cholesterol 23, HDL Cholesterol 76 Physical Exam Const alert and no apparent distress Constitutional Narrative: Patient is dysarthric, she does follow commands however General Appearance: cooperative and well developed Orientation / Consciousness: awake HEENT normocephalic, head/scalp atraumatic and moist oral mucous membranes Eyes PERRL, EOMs intact bilaterally and conjunctivae normal Neck supple, no JVD, thyroid normal and no carotid bruits General: trachea midline Resp normal respiratory effort, no retractions, no use of accessory muscles and clear to auscultation bilaterally Auscultation: Negative for rales, rhonchi or wheezes Cardio regular rate, regular rhythm, S1 normal heart sound, S2 normal heart sound, no murmurs, no rub and no gallops GI normal to inspection, nondistended, normoactive bowel sounds, soft to palpation, non-tender and non-distended Extremity no clubbing, cyanosis or edema Skin no rashes or lesions noted General Skin Exam: no breakdown Neuro CN's II-XII intact bilaterally, moves all extremities and no focal motor deficits Neuro Narrative: Patient has dysarthria Sensorium / Orientation: awake and alert Psych affect normal Assessment & Plan Assessment/Plan (1) Acute stroke due to ischemia: PLAN: Plan 1. Acute ischemic strokes in the right and left brain-probably secondary to embolic etiology, teleneurology recommends placing patient on Eliquis in 7 days, for now patient will remain on 81 mg aspirin daily. #2 essential hypertension-patient's blood pressure medicines were restarted today, they may need readjustment based on her blood pressure readings #3 coronary artery disease-this appears stable at this time, again I started the patient back on her home medication today which includes carvedilol #4 peripheral vascular disease-complicates care, management, recovery, and prognosis #5 acute kidney injury-patient's fluids will be decreased, BMP will be rechecked tomorrow #6 paroxysmal atrial fibrillation-patient appears to be in sinus rhythm most of the time but does have periods that appear to be atrial fibrillation., Rhythm will be monitored, again patient will need to go on full anticoagulation in 7 days Total clinical time spent by myself addressing the patient's medical issues, reviewing all of her data, and collaborating with patient's care team: 50-minute Charges/Coding Visit Charges Inpatient E&M: 29363 Subs Hosp L3
[2023-08-15] MEDS: 0.9% Normal Saline (1000mL) 1,000 ML 75 ML IV (17:26)
[2023-08-15] MEDS: amLODIPine 5 MG Tablet PO (17:32)
[2023-08-15 17:46] LABS: Bedside Glucose 98 mg/dL (74-106)
[2023-08-15 18:28] LABS: Bedside Glucose 115 mg/dL (74-106)
[2023-08-15] MEDS: hydrALAZINE 20 MG/ML Vial 5 MG IV (19:15)
[2023-08-15] MEDS: Atorvastatin Calcium 40 MG Tablet PO (20:12)
[2023-08-15] MEDS: Gabapentin 300 MG Capsule PO (20:22)
[2023-08-15] MEDS: hydrOXYzine 50 MG/ML Vial 100 MG IM (23:28)
[2023-08-16] VITALS (20 sets, daily range): BP systolic 76–164; BP diastolic 36–69; PULSE 51–81; RESP 16–22; TEMP 36.1–37.1; O2SAT 96–99; BMI 21.4
[2023-08-16 06:53] LABS: Bedside Glucose 89 mg/dL (74-106)
--- NOTE | 2023-08-16 07:25 | CASEMGMT ---
[facility] received approval for patient. notified physician. Ana Cristina ALBERTO
[2023-08-16] MEDS: 0.9% Normal Saline (1000mL) 1,000 ML 75 ML IV ×2 (07:38→18:00)
[2023-08-16 08:40] LABS: Anion Gap 6 (5-15); BUN 22 mg/dL (7-18); BUN/Creat Ratio 29.3 RATIO (10-20); Calcium,Total 8.9 mg/dL (8.5-10.1); Chloride 109 mmol/L (98-107); Creatinine, Serum 0.75 mg/dL (0.55-1.02); EST Glomerular Filtration Rate 77 mL/min (>60); Est Glom Filt Rate - Afr Amer 94 mL/min (>60); Estimated Creatinine Clearance 37.39 ml/min; Glucose 86 mg/dL (74-106); Potassium 2.8 mmol/L (3.5-5.1); Sodium Level 143 mmol/L (136-145)
[2023-08-16] MEDS: Heparin Injection (Vial) 5,000 UNIT/ML VIAL 5000 UNIT SC ×2 (10:46→20:30)
[2023-08-16] MEDS: Menthol/Lanolin/Calamine/Znox 113 GM Tube 1 APPLIC TOPICAL ×2 (10:47→20:15)
[2023-08-16] MEDS: hydroCHLOROthiazide 25 MG Tablet PO (10:47)
[2023-08-16] MEDS: Losartan Potassium 100 MG Tablet PO (10:47)
[2023-08-16] MEDS: Aspirin 81 MG TAB.CHEW PO (10:47)
[2023-08-16] MEDS: Carvedilol 6.25 MG Tablet PO (10:47)
[2023-08-16] MEDS: Donepezil HCl 5 MG Tablet PO (10:47)
[2023-08-16] MEDS: Isosorbide Mononitrate 60 MG Tablet PO (10:48)
[2023-08-16] MEDS: amLODIPine 5 MG Tablet PO (10:48)
[2023-08-16] MEDS: 0.9% Normal Saline (1000mL) 1,000 ML 999 ML IV (11:50)
--- NOTE | 2023-08-16 12:19 | CT_ITS ---
STUDY: CT BRAIN WITHOUT CONTRAST REASON FOR EXAM: Female, 88 years old. History of stroke. RADIATION DOSAGE (If Supplied By Facility): CTDIvol = ( 44.99 ) mGy, DLP = ( 812.98 ) mGycm TECHNIQUE: Transaxial CT imaging of the brain was performed without administration of intravenous contrast material. Individualized dose optimization techniques were used for this CT. COMPARISON: Comparison is made with prior study dated August 14, 2023. FINDINGS: Normal soft tissue structures. Normal calvarium. There is mild cerebral atrophy with widening of the extra-axial spaces and ventricular dilatation. There is evidence of a acute/subacute infarcts involving the posterior right parietal occipital lobe as well as the left occipital lobe with extension into the left cerebellum. There is also evidence of decreased attenuation in the basal ganglia bilaterally more prominent in the insular cortex of the left temporal lobe. There has been essentially no change. There are areas of decreased attenuation within the white matter tracts of the supratentorial brain, consistent with microvascular disease changes. Normal basal ganglia and thalami. Normal brainstem. Normal cerebellum. There is no intracranial hemorrhage. There are no findings of an acute ischemic infarction. Atherosclerotic calcification of the cavernous portions of the internal carotid arteries bilaterally. Normal visualized paranasal sinuses. CT/Brain/Head without Contrast IMPRESSION: Chronic involutional changes of the brain. Stable appearance of the bilateral scattered infarcts. Electronically Signed: Andrea Delgadillo MD at 13:04 EDT ,
[2023-08-16] MEDS: 0.9% Normal Saline (500mL Bag) 500 ML 999 ML IV (16:22)
[2023-08-16 17:34] LABS: Bedside Glucose 102 mg/dL (74-106)
--- NOTE | 2023-08-16 18:34 | PCM.PN.HOSP ---
Reason for Visit Reason for Visit: Diagnoses Cerebral infarction, unspecified (08/14/23) Subjective Subjective Patient was seen and examined earlier today, she was alert and able to feed herself, later on today patient had an episode where she became less responsive and would not follow commands. She became lethargic, I ordered a CT of her head which was performed and did not show any new abnormal areas. I talked briefly to teleneurology about her care and they recommended that if the patient's mentation did not improve by tomorrow that we repeat her MRI and get an EEG. I had some problems with her blood pressure today and given her fluid boluses, her potassium was low this morning, I have written for IV potassium replacement and labs will be repeated tomorrow. Objective Data Objective Data Vital Signs: Vital Signs Temp Pulse Resp BP Pulse Ox O2 Del Method 98.8 F 64 16 158/69 H 97 Room Air 08/16/23 10:45 08/16/23 10:45 08/16/23 10:45 08/16/23 10:45 08/16/23 10:58 08/16/23 10:45 Oxygen Delivery Method Room Air Weight: 51.4 kg Body Mass Index (BMI) 21.4 Intake & Output: Intake and Output for Last 24 Hours 08/14/23 08/15/23 08/16/23 23:59 23:59 23:59 Intake Total 1000 / 1000 2100 / 2220 3367.5 / 3367.5 Output Total 0 / 0 150 / 650 700 / 700 Balance 1000 / 1000 1950 / 1570 2667.5 / 2667.5 Lab / Micro Data 08/17/23 06:50 08/17/23 06:50 Labs: Laboratory Results - last 24 hr 08/16/23 06:35: POC Glucose 89 08/16/23 07:33: Sodium 143, Potassium 2.8 L, Chloride 109 H, Carbon Dioxide 28.0, Anion Gap 6, BUN 22 H, Creatinine 0.75, Estim Creat Clear Calc 37.39, Est GFR (MDRD) Af Amer 94, Est GFR (MDRD) Non-Af 77, BUN/Creatinine Ratio 29.3 H, Glucose 86, Calcium 8.9 08/16/23 11:33: POC Glucose 102 Radiography Diagnostic Testing: Radiology Impression Brain CT 08/16/23 12:19 IMPRESSION: Chronic involutional changes of the brain. Stable appearance of the bilateral scattered infarcts. Electronically Signed: Andrea Delgadillo MD at 13:04 EDT , Physical Exam Const alert and no apparent distress Constitutional Narrative: Patient is lethargic and somnolent General Appearance: well kempt and well developed HEENT normocephalic, head/scalp atraumatic and moist oral mucous membranes Eyes PERRL, EOMs intact bilaterally and conjunctivae normal Neck supple, no JVD, thyroid normal and no carotid bruits General: trachea midline Resp normal respiratory effort, no retractions, no use of accessory muscles and clear to auscultation bilaterally Auscultation: Negative for rales, rhonchi or wheezes Cardio regular rate, regular rhythm, S1 normal heart sound, S2 normal heart sound, no murmurs, no rub and no gallops GI normal to inspection, nondistended, normoactive bowel sounds, soft to palpation, non-tender and non-distended Extremity no clubbing, cyanosis or edema Skin no rashes or lesions noted General Skin Exam: no breakdown Neuro CN's II-XII intact bilaterally Neuro Narrative: Patient is lethargic and somnolent Psych Psych Narrative: Patient is lethargic and somnolent Assessment & Plan Assessment/Plan (1) Acute stroke due to ischemia: PLAN: Plan 1. 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 I talked to teleneurology today and they stated that if the patient's mental status was not improved tomorrow to obtain an MRI and an EEG. I will reevaluate the patient in the morning #2 essential hypertension-patient's blood pressure medicines were restarted today, they may need readjustment based on her blood pressure readings #3 coronary artery disease-this appears stable at this time, again I started the patient back on her home medication today which includes carvedilol #4 peripheral vascular disease-complicates care, management, recovery, and prognosis #5 acute kidney injury-patient's fluids will be decreased, BMP will be rechecked tomorrow #6 paroxysmal atrial fibrillation-patient appears to be in sinus rhythm most of the time but does have periods that appear to be atrial fibrillation., Rhythm will be monitored, again patient will need to go on full anticoagulation in 7 days Total clinical time spent by myself addressing the patient's medical issues, reviewing all of her data, and collaborating with patient's care team: 50-minute Charges/Coding Visit Charges Inpatient E&M: 75364 Subs Hosp L3
[2023-08-16] MEDS: Potassium Chloride 10mEq/100mL 10 MEQ/100 ML IV.SOLN. 100 MEQ IV BOLUS ×3 (19:02→21:41)
[2023-08-16 19:28] LABS: Bedside Glucose 96 mg/dL (74-106)
[2023-08-16] MEDS: Gabapentin 300 MG Capsule PO (20:14)
[2023-08-16] MEDS: Atorvastatin Calcium 40 MG Tablet PO (20:14)
[2023-08-16] MEDS: Dextrose 50%-Water 25 GM/50 ML DISP.SYRIN IV (23:05)
--- NOTE | 2023-08-16 23:08 | NURSING ---
Pt's blood glucose 70. Pt currently sleeping, when awoken to ask if she wanted some orange juice, pt declined and went right back to sleep. 1/2 amp D50 IV given instead.
[2023-08-16 23:39] LABS: Bedside Glucose 151 mg/dL (74-106)
[2023-08-16 23:39] LABS: Bedside Glucose 70 mg/dL (74-106)
[2023-08-17] VITALS (7 sets, daily range): BP systolic 133–175; BP diastolic 46–114; PULSE 53–85; RESP 16–26; TEMP 36.5–36.9; O2SAT 94–100
[2023-08-17] MEDS: Dextrose 50%-Water 25 GM/50 ML DISP.SYRIN IV (05:14)
[2023-08-17] MEDS: Dextrose 5%/0.9% NaCl 1,000 ML 75 ML IV (05:16)
[2023-08-17 05:39] LABS: Bedside Glucose 67 mg/dL (74-106)
[2023-08-17 05:39] LABS: Bedside Glucose 218 mg/dL (74-106)
[2023-08-17 07:55] LABS: Absolute Lymphocyte Count 0.99 X10^3/uL (0.83-4.51); Absolute Neutrophil Count 3.7 X10^3/uL (2.0-7.7); Basophil# 0.04 X10^3/uL; Basophil% 0.8 % (0-1); Eosinophil# 0.03 X10^3/uL; Eosinophils% 0.6 % (0-5); Hematocrit 27.2 % (37-47); Hemoglobin 8.8 g/dL (12.0-15.0); Lymphocyte # 0.99 X10^3/ul (0.83-4.51); Lymphocyte % 18.9 % (19-41); Mean Corp Hgb Conc 32.4 g/dL (32-36); Mean Corpuscular Hgb 27.3 pg (27.0-32.0); Mean Corpuscular Volume 84.5 fL (81-99); Mean Platelet Vol. 10.5 fl (6.2-12.0); Monocyte# 0.49 X10^3/uL; Monocyte% 9.4 % (0-10); NRBC Flagged by Analyzer 0 % (0-5); Neutrophil # 3.68 X10^3/uL (2.7-7.7); Neutrophil % 70.1 % (47-70); Platelet Count 237 K/mm3 (150-450); RBC Distribution Width CV 14.8 % (11.6-14.6); RBC Distribution Width SD 45.7 fl (35.1-43.9); Red Blood Count 3.22 M/mm3 (4.2-5.4); White Blood Count 5.2 K/mm3 (4.4-11.0)
[2023-08-17 09:13] LABS: Anion Gap 5 (5-15); BUN 23 mg/dL (7-18); BUN/Creat Ratio 28.6 RATIO (10-20); Chloride 113 mmol/L (98-107); EST Glomerular Filtration Rate 72 mL/min (>60); Est Glom Filt Rate - Afr Amer 87 mL/min (>60); Estimated Creatinine Clearance 37.39 ml/min; Glucose 169 mg/dL (74-106); Potassium 2.7 mmol/L (3.5-5.1); Sodium Level 141 mmol/L (136-145)
--- NOTE | 2023-08-17 09:24 | MRI_ITS ---
STUDY: MRI BRAIN WITHOUT CONTRAST REASON FOR EXAM: Female, 88 years old. stroke TECHNIQUE: Standardized multiplanar fat and water weighted pulse sequences were obtained. COMPARISON: MRI of the brain dated August 14, 2023. Head CT dated August 16, 2023 FINDINGS: * Redemonstration of multiple acute bilateral cerebral hemispheric infarcts as follows * No interval change in moderate acute infarct of the right occipital lobe extending into the posterior superior aspect of the right parietal lobe * Mild interval worsening with increased signal of the small infarct in the anterior medial aspect of the right temporal lobe * Slight interval decrease in tiny acute infarcts of the right caudate nucleus/internal capsule junction * Interval appearance/new tiny acute cortical infarct in the anterior aspect of the right parietal lobe seen on image 18/56 series 4. * Moderate size acute infarct in the posterior medial aspect of the left cerebellar lobe is unchanged from the prior study * Interval appearance of 2 tiny acute cortical infarcts in the lateral and medial aspect of the left anterior temporal fossa/lobe * No interval change in small acute infarct of the left lentiform nucleus and posterior limb of the internal capsule junction * No interval change in small acute infarcts in the mid aspect of the left periventricular white matter * No interval change in cortical infarcts of the left frontal and parietal lobe regions * There is no demonstrated hemorrhagic conversion or acute intraparenchymal hemorrhage There is mild cerebral atrophy with widening of the extra-axial spaces and ventricular dilatation. There are multiple white matter hyperintensities, distributed throughout the deep white matter tracts of the cerebral hemispheres, consistent with moderate chronic white matter ischemic changes. Normal T2* images of the brain without demonstrated susceptibility artifact. There is no demonstrated hemosiderin stain. Normal bilateral basal ganglia. Normal thalami. There is no extra-axial fluid accumulation. Normal flow voids within the major intracranial circulation suggesting patency by spin echo criteria. Normal sella turcica, pituitary gland, infundibular stalk, optic chiasm and hypothalamus. Normal tectal plate and pineal gland. Normal midbrain, zain and medulla. Normal cerebellum. Normal basal cisterns. Normal bilateral temporal bones. Normal bilateral internal auditory canals. No demonstrated orbital abnormality, within the constraints of a routine brain study. Normal visualized paranasal sinuses. Normal calvarium and skull base. Normal visualized soft tissue structures. Normal visualized upper cervical spine. MRI/Brain without Contrast IMPRESSION: 1. Interval appearance/new tiny acute cortical infarct in the anterior aspect of the right parietal lobe seen on image 18/56 series 4. 2. Interval appearance of 2 tiny acute cortical infarcts in the lateral and medial aspect of the left anterior temporal fossa/lobe Electronically Signed: Billy Holland MD at 12:41 EDT ,
[2023-08-17] MEDS: Aspirin 81 MG TAB.CHEW PO (09:34)
[2023-08-17] MEDS: Heparin Injection (Vial) 5,000 UNIT/ML VIAL 5000 UNIT SC ×2 (09:35→21:18)
[2023-08-17] MEDS: Losartan Potassium 50 MG Tablet PO (09:35)
[2023-08-17] MEDS: Donepezil HCl 5 MG Tablet PO (09:36)
[2023-08-17] MEDS: Potassium Chloride 10mEq/100mL 10 MEQ/100 ML IV.SOLN. 100 MEQ IV BOLUS ×3 (09:59→13:37)
[2023-08-17] MEDS: 0.9% Saline Lock 10 ML Syringe IV (10:00)
[2023-08-17] MEDS: Menthol/Lanolin/Calamine/Znox 113 GM Tube 1 APPLIC TOPICAL ×2 (11:13→21:18)
[2023-08-17 13:03] LABS: Bedside Glucose 124 mg/dL (74-106)
[2023-08-17] MEDS: Isosorbide Mononitrate 30 MG Tablet PO (14:06)
--- NOTE | 2023-08-17 14:35 | TREXTCAR_ITS ---
Diet Diet Order/Speech Therapy: 08/15/23 11:34 Diet: Cardiac - Heart Healthy Food consistency:: Soft & Bite Sized Liquid Consistency:: Regular/Thin Is pt able to select menu?: No Diet Comments: TOTAL FEED, meds whole in 1 at a time Routine Orders/Code Status Routine Lab Work: CBC (in 5 days) and BMP (in 5 days) Code Status: Full Code Wound(s) R Lateral Upper Back: Wound Type: Abrasion Therapies Weight Bearing: Weight bearing as tolerated Physical Therapy: Eval and Treat Occupational Therapy: Eval and Treat Speech Therapy: Eval and Treat Problem/Diagnosis (1) Acute stroke due to ischemia: Status: Acute Code(s): I63.9 - Cerebral infarction, unspecified Plan 1. 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 #2 essential hypertension-patient's blood pressure medicines were restarted today, they may need readjustment based on her blood pressure readings #3 coronary artery disease-this appears stable at this time, again I started the patient back on her home medication today which includes carvedilol #4 peripheral vascular disease-complicates care, management, recovery, and prognosis #5 acute kidney injury-patient's fluids will be decreased, BMP will be rechecked tomorrow #6 paroxysmal atrial fibrillation-patient appears to be in sinus rhythm most of the time but does have periods that appear to be atrial fibrillation., Rhythm will be monitored, again patient will need to go on full anticoagulation in 7 days Total clinical time spent by myself addressing the patient's medical issues, rev iewing all of her data, and collaborating with patient's care team: 50-minute Allergies/Procedures Done in Hospital Allergies lisinopril Adverse Reaction (Verified 02/15/22 16:43) cough Procedures: 2-D Echocardiogram Type of Care/Length of Stay Estimated LOS: Convalescent Care Less Than 30 days Type of Care Needed: Skilled Rehab Potential: Good Prognosis: Good Additional Orders/Day of Discharge H&P will serve as current which was dated: 08/14/23 Day of Discharge: 08/17/23 Dietary and Speech Recommendations Dietitian Recommendations/Changes: recommend advance diet as tolerated to regular- texture/consistency per LUMBER PRESS OPERATOR; as adequate PO intake is established, may adjust diet to cardiac w/ CHO control pending blood glucose levels. Glucerna ONS if PO intake at meals fails. Discharge Plan Admission Admit Date/Time: 08/14/23 07:55 Primary Reason for Your Visit: acute strokes Attending Provider: Austen Lopez Primary Care Provider: Sam Rojas Consulting Providers: Ross Potts; Juliette Thakur; Bianca Lerner; Christin Brooks; Tameka Mcneill; Dangelo Naylor; Génesis Quintero; Hipolito Field; Oren Rogers; Diamond Henley; Catarino Calderon; Fanny Smith; Jhon Clemente; Jw Lindo; Christian Hagen; Master Venegas; Dennis Sheets; Abbie Espitia; Grace Bazan; Akua Le; Dwain Wilde; Prakash Lainez; EVAN BROWN; Theodore Chester; Poonam Land Instructions Additional Instructions / Restrictions: On 08/20/2023, stop the patient's [address] the patient on Eliquis 2.5 mg twice daily and continue this medication. Discharge Orders/Prescriptions Prescriptions: New losartan 50 mg Tablet 50 mg PO DAILY Qty: 0 0RF atorvastatin 40 mg Tablet 40 mg PO QHS Qty: 0 0RF donepezil 5 mg Tablet 10 mg PO DAILY Qty: 0 0RF isosorbide mononitrate 30 mg Tablet Extended Release 24 Hr 30 mg PO DAILY Qty: 0 0RF menthol-zinc oxide [Calmoseptine] 0.44-20.6 % Ointment 1 applic topical BID Qty: 0 0RF Protocol: *Topical Application Instructions APPLICATION INSTRUCTIONS: bilat buttocks Continued aspirin 81 MG tablet 81 mg PO DAILY@0800 gabapentin 300 mg/6 mL (6 mL) solution 300 mg PO QHS (DME) Knee High Compression Stockings 20-30 mmhg Qty: 2 0RF Dose Instruction: As directed Rx Instructions: As directed carvedilol 6.25 mg tablet 6.25 mg PO BID Qty: 180 3RF Discontinued nitroglycerin 0.4 mg tablet, sublingual 0.4 mg SUBLINGUAL Q5-15M PRN (Reason: chest pain) Qty: 25 3RF donepezil 5 mg tablet 5 mg PO DAILY losartan-hydrochlorothiazide 50-12.5 mg tablet 1 tab PO QDAY Qty: 90 3RF Hold Instructions: hypotension furosemide 40 mg tablet 40 mg PO DAILY Qty: 90 3RF isosorbide mononitrate 60 mg tablet extended release 24 hr 60 mg PO DAILY Qty: 90 3RF Referrals / Follow Up: aSm Rojas MD [Primary Care Provider] - Disposition Disposition (needs filled in before D/C Order can be placed): Senior Living Facility
[2023-08-17 15:37] LABS: Potassium 3.5 mmol/L (3.5-5.1)
--- NOTE | 2023-08-17 15:39 | NEURO.PNOTE ---
Assessment and Plan: Neuro Assessment/Plan JEANETTE CORRIGAN is a 88 F with a past medical history of HTN and newly diagnosed AFIB, being evaluated by Teleneurology for acute ischemic stroke. Pt had a reported decline in exam yesterday associated with acute hypotension. she was given IV fluid with improvement in her map. CT head with no acute changes, MRI today with new small ischemic stroke Diagnosis: cardio embolic ischemic stroke Plan: cont with permissive HTN could be SBP<180 PT/OT speech therapy TTE High intensity statin lipitor 80 mg daily CHADVASC 2 score 6 Pt will need senior care anticoagulation for secondary stroke prevention, AC could be started on 7 days post stroke Subject: Neurology Subjective JEANETTE CORRIGAN is a 88 year old F, who we are seeing in consultation today for advice on the management of stroke NIHSS NIHSS Nursing Documentation NIHSS Nursing Documentation: NIHSS: Ischemic Stroke/TIA Start: 08/14/23 09:44 Text: For PCU Patients: NIH and Neuro Check every 4 Status: Complete hours, PRN and with change in RN caregiver. Freq: [id number] Protocol: Activity Type Activity Date Activity User E-sign Co-sign Detail Recorded Client Recorded Date Recorded By Document 08/15/23 09:30 Desktop 08/15/23 09:34 08/15/23 09:30 NIH Stroke Scale [NIHSS] A score of 0 is normal or asymptomatic . Total possible score is 42. Inpatient: RN or Physician to activate a stroke alert for onset of new stroke symptoms or with NIHSS increase >/= 3 points. Following change in neurological status, NIHSS will be performed per physician order or more frequently PRN. -1a. Level of Consciousness Alert; keenly responsive -1b. LOC Questions Answers neither question correctly. -1c. LOC Commands Performs one task correctly. -2. Best Gaze Normal -3. Visual No visual loss -4. Facial Palsy Minor paralysis (flattened nasolabial fold , asymmetry on smiling) -5a. Left Arm No drift; arm holds 90 (or 45 ) degrees for full 10 seconds -5b. Right Arm Drift; arm drifts downward but doesn?t hit the bed -6a. Left Leg Drift; leg falls by the end of 5- seconds, but does not hit bed -6b. Right Leg Drift; leg falls by the end of 5- seconds, but does not hit bed -7. Limb Ataxia Present in 1 limb -8. Sensory Mild-to- moderate sensory loss; -9. Best Language Severe aphasia; -10. Dysarthria Mild-to- moderate dysarthria; -11. Extinction and Inattention Profound britton- inattention or extinction to more than one modality; -Total 14 Query Text:A score of 0 is normal or asymptomatic. Total possible score is 42 . ED: Notify Physician for NIHSS increase by > / = 3 points. Inpatient: RN or Physician to activate a stroke alert for NIHSS increase of > / = 3 points. Coma Scale [Assess] -Eye Opening Spontaneous -Motor Withdraws to Pain -Verbal Confused [Total] -Coma Scale Total 12 EEG Results Procedure Details EEG Procedure Details: JEANETTE CORRIGAN is a 88 year old F with a past medical history of , who presents for evaluation of Electroencephalogram on DATE at TIME Objective Data Objective Data Vital Signs: Vital Signs Temp Pulse Resp BP Pulse Ox O2 Del Method 97.7 F L 64 23 H 169/110 H 100 Room Air 08/17/23 12:30 08/17/23 12:30 08/17/23 12:30 08/17/23 12:30 08/17/23 12:30 08/17/23 12:30 Oxygen Delivery Method Room Air Weight: 51.4 kg Body Mass Index (BMI) 21.4 Intake & Output: Intake and Output for Last 24 Hours 08/15/23 08/16/23 08/17/23 23:59 23:59 23:59 Intake Total 2100 / 2220 3716.25 / 3716.25 1382.5 / 1382.5 Output Total 150 / 650 950 / 950 450 / 450 Balance 1950 / 1570 2766.25 / 2766.25 932.5 / 932.5 Lab / Micro Data 08/17/23 06:50 08/17/23 15:05 Labs: Laboratory Results - last 24 hr 08/16/23 11:33: POC Glucose 102 08/16/23 16:21: POC Glucose 96 08/16/23 23:00: POC Glucose 70 L 08/16/23 23:22: POC Glucose 151 H 08/17/23 05:05: POC Glucose 67 L 08/17/23 05:21: POC Glucose 218 H 08/17/23 06:50: WBC 5.2, RBC 3.22 L, Hgb 8.8 L, Hct 27.2 L, MCV 84.5, MCH 27.3, MCHC 32.4, RDW Std Deviation 45.7 H, RDW Coeff of Alex 14.8 H, Plt Count 237, MPV 10.5, Immature Gran % (Auto) 0.200, Neut % (Auto) 70.1 H, Lymph % (Auto) 18.9 L, Mccone % (Auto) 9.4, Eos % (Auto) 0.6, Baso % (Auto) 0.8, Absolute Neuts (auto) 3.7, Absolute Lymphs (auto) 0.99, Nucleated RBC % 0, Sodium 141, Potassium 2.7 L*, Chloride 113 H, Carbon Dioxide 23.0, Anion Gap 5, BUN 23 H, Creatinine 0.80, Estim Creat Clear Calc 37.39, Est GFR (MDRD) Af Amer 87, Est GFR (MDRD) Non-Af 72, BUN/Creatinine Ratio 28.6 H, Glucose 169 H, Calcium 8.0 L 08/17/23 11:17: POC Glucose 124 H 08/17/23 15:05: Potassium 3.5 Radiography Diagnostic Testing: Radiology Impression Brain MRI 08/17/23 09:24 IMPRESSION: 1. Interval appearance/new tiny acute cortical infarct in the anterior aspect of the right parietal lobe seen on image 18/56 series 4. 2. Interval appearance of 2 tiny acute cortical infarcts in the lateral and medial aspect of the left anterior temporal fossa/lobe Electronically Signed: Billy Holland MD at 12:41 EDT , Physical Exam Neuro Neuro Narrative: awake alert says her name follows simple commands, mild expressive aphasia right hemiparesis
--- NOTE | 2023-08-17 16:19 | CASEMGMT ---
Patient is ready for discharge to [facility]. FOSTER completed a 7000 in HENS. FOSTER called Physicians and arranged for patient to get picked up at 6p via cot. FOSTER called patient's son and let him know as well. RN and secretary bookkeeper notified. Orders, 7000, and sisal picker time sent to [facility] via [facility]. Plan: d/c to [facility] under skilled level of care on a convalescent stay. Physicians will transport patient via cot. Ana Cristina ALBERTO
--- NOTE | 2023-08-17 16:20 | DS.PCM_ITS ---
Providers Date of Admission: 08/14/23 Date of Discharge: 08/17/23 Primary Care Physician: Dr. Sam Rojas MD Consultations 08/14/23 09:44 Consult: Tele-Neurology Routine Consulting Provider: [facility] Reason for Consult: Acute Ischemic Stroke/TIA EMERGENT Consult: No MD Notified: Yes Date Notified: 08/14/23 Time Notified: 09:46 Method of Notification: Answering Service Comments:: patient was stroke alert in ER Nursing Unit Staff Notify [facility] of Tele-Neurology Consult: Yes Reason For Visit: ACUTE STROKE Diagnosis Discharge Diagnosis (1) Acute stroke due to ischemia: Status: Acute Code(s): I63.9 - Cerebral infarction, unspecified Plan 1. 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 I talked to teleneurology today and they stated that if the patient's mental status was not improved tomorrow to obtain an MRI and an EEG. I will reevaluate the patient in the morning #2 essential hypertension-patient's blood pressure medicines were restarted today, they may need readjustment based on her blood pressure readings #3 coronary artery disease-this appears stable at this time, again I started the patient back on her home medication today which includes carvedilol #4 peripheral vascular disease-complicates care, management, recovery, and prognosis #5 acute kidney injury-patient's fluids will be decreased, BMP will be rechecked tomorrow #6 paroxysmal atrial fibrillation-patient appears to be in sinus rhythm most of the time but does have periods that appear to be atrial fibrillation., Rhythm will be monitored, again patient will need to go on full anticoagulation in 7 days Total clinical time spent by myself addressing the patient's medical issues, reviewing all of her data, and collaborating with patient's care team: 50-minute Medications at Discharge Home Medications aspirin 81 mg tablet,delayed release 81 mg PO DAILY@0800 blood thinner 03/08/14 Knee High Compression Stockings #2 ea 03/20/18 carvedilol 6.25 mg tablet 6.25 mg PO BID blood pressure #180 tabs 12/26/21 gabapentin 300 mg/6 mL (6 mL) oral solution 300 mg PO QHS neuropathy 08/14/23 atorvastatin 40 mg tablet 40 mg PO QHS #0 tabs 08/17/23 donepezil 5 mg tablet 10 mg (2 x 5 mg) PO DAILY #0 tabs 08/17/23 isosorbide mononitrate 30 mg tablet,extended release 24 hr 30 mg PO DAILY #0 tabs 08/17/23 losartan 50 mg tablet 50 mg PO DAILY #0 tabs 08/17/23 menthol 0.44 %-zinc oxide 20.6 % topical ointment (Calmoseptine) 1 applic topical BID #0 grams 08/17/23 Hospital Course Operations None Procedures 2-D Echocardiogram Summary of Care Provided Minutes Spent on Discharge: 31 Hospital Course: This 88-year-old white female was seen in the emergency room at [facility] after being found at home with right-sided weakness and dec reased mentation, the patient had last been seen well the day before at 9:00 at night. Stroke alert was called, patient underwent a CT scan of the brain which showed evidence of right-sided strokes which did not correlate with the patient's presentation. Teleneurology recommended no tenecteplase due to the patient's timeframe when she was last seen well. shelter monitor in the emergency room showed an episode of atrial fibrillation which resolved spontaneously. Patient was admitted to PCU, she was seen by PT OT and speech therapy, she underwent an MRI which showed multiple strokes in the right and left side of the brain. It was recommended that the patient be anticoagulated after 7 days from the date of the stroke. On 08/17/2023, patient was seen and examined:alert and no apparent distress Constitutional Narrative: Patient is lethargic and somnolent General Appearance: well kempt and well developed HEENT normocephalic, head/scalp atraumatic and moist oral mucous membranes Eyes PERRL, EOMs intact bilaterally and conjunctivae normal Neck supple, no JVD, thyroid normal and no carotid bruits General: trachea midline Resp normal respiratory effort, no retractions, no use of accessory muscles and clear to auscultation bilaterally Auscultation: Negative for rales, rhonchi or wheezes Cardio regular rate, regular rhythm, S1 normal heart sound, S2 normal heart sound, no murmurs, no rub and no gallops GI normal to inspection, nondistended, normoactive bowel sounds, soft to palpation, non-tender and non-distended Extremity no clubbing, cyanosis or edema Skin no rashes or lesions noted General Skin Exam: no breakdown Neuro CN's II-XII intact bilaterally Neuro Narrative: Patient is lethargic and somnolent Psych Psych Narrative: Patient is lethargic and somnolent Patient appears stable for discharge to a local extended care facility on 08/17/2023. Weight / BMI Weight Weight: 51.4 kg Body Mass Index (BMI) 21.4 ABG / Lab / Microbiology Data 08/17/23 06:50 08/17/23 15:05 Laboratory: Laboratory Results - last 24 hr 08/16/23 11:33: POC Glucose 102 08/16/23 16:21: POC Glucose 96 08/16/23 23:00: POC Glucose 70 L 08/16/23 23:22: POC Glucose 151 H 08/17/23 05:05: POC Glucose 67 L 08/17/23 05:21: POC Glucose 218 H 08/17/23 06:50: WBC 5.2, RBC 3.22 L, Hgb 8.8 L, Hct 27.2 L, MCV 84.5, MCH 27.3, MCHC 32.4, RDW Std Deviation 45.7 H, RDW Coeff of Alex 14.8 H, Plt Count 237, MPV 10.5, Immature Gran % (Auto) 0.200, Neut % (Auto) 70.1 H, Lymph % (Auto) 18.9 L, Mcintosh % (Auto) 9.4, Eos % (Auto) 0.6, Baso % (Auto) 0.8, Absolute Neuts (auto) 3.7, Absolute Lymphs (auto) 0.99, Nucleated RBC % 0, Sodium 141, Potassium 2.7 L*, Chloride 113 H, Carbon Dioxide 23.0, Anion Gap 5, BUN 23 H, Creatinine 0.80, Estim Creat Clear Calc 37.39, Est GFR (MDRD) Af Amer 87, Est GFR (MDRD) Non-Af 72, BUN/Creatinine Ratio 28.6 H, Glucose 169 H, Calcium 8.0 L 08/17/23 11:17: POC Glucose 124 H 08/17/23 15:05: Potassium 3.5 Radiography Diagnostic Testing: Radiology Impression Brain MRI 08/17/23 09:24 IMPRESSION: 1. Interval appearance/new tiny acute cortical infarct in the anterior aspect of the right parietal lobe seen on image 18/56 series 4. 2. Interval appearance of 2 tiny acute cortical infarcts in the lateral and medial aspect of the left anterior temporal fossa/lobe Electronically Signed: Billy Holland MD at 12:41 EDT Reading Location ID and State: [facility] / [place] , Service support , Meaningful Use Info Meaningful Use Diagnoses (Choose all that apply): Ischemic CVA CVA Therapy Assessed for PT,OT and/or ST?: Yes Ischemic Stroke Antithrombotic order at d/c?: No Reason antithrombotic not ordered: Medical Contraindication Dx of Atrial fib/flutter?: Yes Anticoagulant at discharge?: No Reason anticoagulant not ordered: Medical Contraindication Statins at discharge?: Yes Primary Dx Acute Ischemic CVA?: Yes IV thrombolytic ordered during stay?: No Reason IV thrombolytic not ordered: Medical Contraindication Discharge Plan Admission Admit Date/Time: 08/14/23 07:55 Primary Reason for Your Visit: acute strokes Attending Provider: Austen Lopez Primary Care Provider: Sam Rojas Consulting Providers: Ross Potts; Juliette Thakur; Bianca Lerner; Christin Brooks; Tameka Mcneill; Dangelo Naylor; Génesis Quintero; Hipolito Field; Oren Rogers; Diamond Henley; Catarino Calderon; Fanny Smith; Jhon Clemente; Jw Lindo; Christian Hagen; Master Venegas; Dennis Sheets; Abbie Espitia; Grace Bazan; Akua Le; Dwain Wilde; Prakash Lainez; EVAN BROWN; Theodore Chester; Poonam Land Instructions Additional Instructions / Restrictions: On 08/20/2023, stop the patient's [address] the patient on Eliquis 2.5 mg twice daily and continue this medication. Discharge Orders/Prescriptions Prescriptions: New losartan 50 mg Tablet 50 mg PO DAILY Qty: 0 0RF atorvastatin 40 mg Tablet 40 mg PO QHS Qty: 0 0RF donepezil 5 mg Tablet 10 mg PO DAILY Qty: 0 0RF isosorbide mononitrate 30 mg Tablet Extended Release 24 Hr 30 mg PO DAILY Qty: 0 0RF menthol-zinc oxide [Calmoseptine] 0.44-20.6 % Ointment 1 applic topical BID Qty: 0 0RF Protocol: *Topical Application Instructions APPLICATION INSTRUCTIONS: bilat buttocks Continued aspirin 81 MG tablet 81 mg PO DAILY@0800 gabapentin 300 mg/6 mL (6 mL) solution 300 mg PO QHS (DME) Knee High Compression Stockings 20-30 mmhg Qty: 2 0RF Dose Instruction: As directed Rx Instructions: As directed carvedilol 6.25 mg tablet 6.25 mg PO BID Qty: 180 3RF Discontinued nitroglycerin 0.4 mg tablet, sublingual 0.4 mg SUBLINGUAL Q5-15M PRN (Reason: chest pain) Qty: 25 3RF donepezil 5 mg tablet 5 mg PO DAILY losartan-hydrochlorothiazide 50-12.5 mg tablet 1 tab PO QDAY Qty: 90 3RF Hold Instructions: hypotension furosemide 40 mg tablet 40 mg PO DAILY Qty: 90 3RF isosorbide mononitrate 60 mg tablet extended release 24 hr 60 mg PO DAILY Qty: 90 3RF Referrals / Follow Up: Sam Rojas MD [Primary Care Provider] - Disposition Disposition (needs filled in before D/C Order can be placed): [facility] Facility Charges/Coding Visit Charges Inpatient E&M: 77626 Disch Hosp >30min
[2023-08-17] MEDS: Carvedilol 6.25 MG Tablet PO (21:17)
[2023-08-17] MEDS: Atorvastatin Calcium 40 MG Tablet PO (21:17)
[2023-08-17] MEDS: Gabapentin 300 MG Capsule PO (21:20)
[2023-08-17 21:50] LABS: Bedside Glucose 114 mg/dL (74-106)
== END 2023-08-17 23:40 | disposition skilled nursing facility (03) | DRG 65 ==
LOC: ED 07:19 → PCU 09:11
PROVIDERS: Admitting Provider Internal Medicine; Emergency Provider Emergency Medicine; PCP Family Medicine; Visit Provider Internal Medicine
DX: I63.89 Other cerebral infarction (principal); N17.9 Acute kidney failure, unspecified; G81.91 Hemiplegia, unspecified affecting right dominant side; E11.51 Type 2 diabetes mellitus with diabetic peripheral angiopathy without gangrene; I48.0 Paroxysmal atrial fibrillation; I10 Essential (primary) hypertension; I25.10 Atherosclerotic heart disease of native coronary artery without angina pectoris; Z95.5 Presence of coronary angioplasty implant and graft; Z79.899 Other long term (current) drug therapy; Z79.82 Long term (current) use of aspirin; Z95.1 Presence of aortocoronary bypass graft; R29.721 NIHSS score 21
CPT/HCPCS: 36415; 70450; 70496; 70498; 70551; 71045; 80048; 80061; 82962; 83036; 84132; 84484; 85025; 85610; 85730; 92526; 92610; 93005; 93306; 94762; 95819; 97110; 97162; 97166; 97530; 97535; 97802; 99285; J7030; J7040; Q9967; A4216